=== PATIENT | female | born 1930 | race Caucasian/White ===

== ENCOUNTER 2018-01-20 03:40 | Inpatient (IN) | payer OTHER ==
[~2018-01-20] VITALS: Ht 152.4 cm; Wt 63.6 kg
[2018-01-20] MEDS ORDERED: FENTANYL CITRATE INJ 50 MCG/1 ML 2 ML VIAL IV STA (03:50)
[2018-01-20] MEDS ORDERED: ONDANSETRON INJ 2 MG/ML 2 ML VIAL IV STA (03:50)
[2018-01-20] MEDS ORDERED: SODIUM CHLORIDE 0.9% 1000ML 1,000 ML IV STA (03:50)
[2018-01-20 04:05] LABS: BASO % 0.4 %; BASO ABS # 0.04 K/uL (0-0.2); EOS % 0.5 %; EOS ABS # 0.05 K/uL (0-0.5); HEMATOCRIT 34.8 % (37-47); HEMOGLOBIN 11.7 g/dL (12.0-16.0); IG# 0.02 K/uL (0.00-0.02); LYMPH % 13.2 %; LYMPH ABS # 1.44 K/uL (1.2-3.4); MEAN CELL VOLUME 83.5 fL (80-100); MEAN CORPUSCULAR HEMOGLOBIN 28.1 pg (25-34); MEAN CORPUSCULAR HGB CONC 33.6 g/dl (32-36); MEAN PLATELET VOLUME 9.8 fL (7.4-10.4); MONO % 4.4 %; MONO ABS # 0.48 K/uL (0.11-0.59); NEUT % 81.3 %; NEUT ABS # 8.86 K/uL (1.4-6.5); PLATELET COUNT 265 K/uL (130-400); RED CELL DISTRIBUTION WIDTH CV 14.2 % (11.5-14.5); RED CELL DISTRIBUTION WIDTH SD 43.2 fL (36.4-46.3); WHITE BLOOD COUNT 10.89 K/uL (4.8-10.8)
--- NOTE | 2018-01-20 04:12 | EMERGENCY ROOM VISIT NOTE ---
History Report prepared by Valdez: Abby Brenner Under the Supervision of: Dr. Мария Lamb M.D. First contact with patient: 03:41 Chief Complaint: CARDIAC ASSESSMENT Stated Complaint: CHEST CRAMPING History of Present Illness The patient is a 88 year old female who presents to the Emergency Room with complaints of persistent right sided chest pain that began about 4 hours prior to arrival. She describes her discomfort as a cramping sensation. Pt took 650 mg of aspirin at home, she was given 324 mg of aspirin by BLS on scene. The patient vomited in the ambulance and was given 4 mg of IV Zofran. She denies any back pain or recent illnesses, but notes she has been experiencing abdominal pain and urinating every 5-10 minutes. She reports that her discomfort has not been relieved since it started. Patient states she had an egg sandwich for dinner last evening. She did feel well prior to going to bed. She denies any recent illnesses. The patient denies being a smoker or any recent long distance car rides. Source of History: patient Onset: about 4 hours prior to arrival Position: chest (right) Symptom Intensity: cramping Quality: other (right sided chest pain) Timing: other (persistent) Associated Symptoms: + vomiting, + abdominal pain, No back pain Note: Denies any recent illness. Associated symptoms include: ruinating every 5-10 minutes. Review of Systems See HPI for pertinent positives & negatives. A total of 10 systems reviewed and were otherwise negative. Past Medical & Surgical Medical Problems: (1) Abdominal pain Hypertension Hypothyroidism Family History Patient reports no known family medical history. No pertinent family history. Social History Smoking Status: Never Smoker Smokeless Tobacco Use: No Alcohol Use: none Drug Use: none Marital Status: Occupation Status: retired Current/Historical Medications Scheduled Amlodipine (Norvasc), 2.5 MG PO DAILY Fish Oil ([place]-3), 1 CAP PO DAILY Levothyroxine Sodium (Levothyroxine Sodium), 1 TAB PO DAILY Lisinopril (Lisinopril), 40 MG PO DAILY Allergies Coded Allergies: No Known Allergies (Unverified , 01/20/18) Physical Exam Vital Signs Date Time Temp Pulse Resp B/P (MAP) Pulse Ox O2 Delivery O2 Flow Rate FiO2 01/20/18 06:26 64 16 134/63 98 Room Air 01/20/18 04:55 68 16 125/65 97 Room Air 01/20/18 03:52 36.4 79 16 101/82 97 Room Air 01/20/18 03:52 77 01/20/18 03:47 98 Room Air Physical Exam Vital signs reviewed. General: Elderly. Well-appearing female, in some discomfort. HEENT: No scleral icterus, PERRLA, neck supple. Atraumatic. Cardiovascular: Regular rate and rhythm, no extra sounds. Pulmonary: Clear to auscultation bilaterally, normal work of breathing. Abdomen: Tenderness to right upper quadrant. Soft, nondistended, positive bowel sounds. Musculoskeletal: Atraumatic, no peripheral edema. No CVA tenderness. Neurologic: Patient awake alert and oriented x 3 Skin: Warm, dry, no rash Medical Decision & Procedures ER Provider Diagnostic Interpretation: Radiology results as stated below per my review and radiologist interpretation: Chest x-ray results as stated below per interpretation by me: Slight interstitial prominence precisely at the left lung base. No convincing evidence for pneumonia. No congestive heart failure. CT ABDOMEN & PELVIS without contrast: Lower thorax demonstrates atelectasis and or scarring. Enlarged heart. Gallstones. No CT evidence of acute cholecystitis. Liver, spleen, pancreas and adrenal glands are unremarkable. Kidneys, ureters and urinary bladder unremarkable. Uterus and adnexa unremarkable. Noninflamed colonic diverticulosis. Appendix is not visualized. Vascular calcifications. No acute osseous abnormality. Radiologist: Maxwell Evans MD. US RUQ: Increased echogenicity liver suggesting hepatic steatosis. Gallstones noted within the gallbladder neck. No gallbladder wall thickening or pericholecystic fluid. Common bile duct is prominent measuring 11mm. Right kidney is atrophic. No hydronephrosis or masses. Radiologist: Maxwell Bonilla MD. Laboratory Results 01/20/18 03:50 Red Blood Count 4.17, Mean Corpuscular Volume 83.5, Mean Corpuscular Hemoglobin 28.1, Mean Corpuscular Hemoglobin Concent 33.6, Mean Platelet Volume 9.8, Neutrophils (%) (Auto) 81.3, Lymphocytes (%) (Auto) 13.2, Monocytes (%) (Auto) 4.4, Eosinophils (%) (Auto) 0.5, Basophils (%) (Auto) 0.4, Neutrophils # (Auto) 8.86, Lymphocytes # (Auto) 1.44, Monocytes # (Auto) 0.48, Eosinophils # (Auto) 0.05, Basophils # (Auto) 0.04 01/20/18 03:50 Test 01/20/18 03:50 White Blood Count 10.89 K/uL (4.8-10.8) Red Blood Count 4.17 M/uL (4.2-5.4) Hemoglobin 11.7 g/dL (12.0-16.0) Hematocrit 34.8 % (37-47) Mean Corpuscular Volume 83.5 fL (80-100) Mean Corpuscular Hemoglobin 28.1 pg (25-34) Mean Corpuscular Hemoglobin Concent 33.6 g/dl (32-36) Platelet Count 265 K/uL (130-400) Mean Platelet Volume 9.8 fL (7.4-10.4) Neutrophils (%) (Auto) 81.3 % Lymphocytes (%) (Auto) 13.2 % Monocytes (%) (Auto) 4.4 % Eosinophils (%) (Auto) 0.5 % Basophils (%) (Auto) 0.4 % Neutrophils # (Auto) 8.86 K/uL (1.4-6.5) Lymphocytes # (Auto) 1.44 K/uL (1.2-3.4) Monocytes # (Auto) 0.48 K/uL (0.11-0.59) Eosinophils # (Auto) 0.05 K/uL (0-0.5) Basophils # (Auto) 0.04 K/uL (0-0.2) RDW Standard Deviation 43.2 fL (36.4-46.3) RDW Coefficient of Variation 14.2 % (11.5-14.5) Immature Granulocyte % (Auto) 0.2 % Immature Granulocyte # (Auto) 0.02 K/uL (0.00-0.02) Anion Gap 9.0 mmol/L (3-11) Est Creatinine Clear Calc Drug Dose 40.9 ml/min Estimated GFR () 70.9 Estimated GFR (Non- 61.2 BUN/Creatinine Ratio 11.0 (10-20) Estimated Average Glucose 117 mg/dl Hemoglobin A1c 5.7 % (4.5-5.6) Calcium Level 8.9 mg/dl (8.5-10.1) Magnesium Level 2.2 mg/dl (1.8-2.4) Total Bilirubin 0.5 mg/dl (0.2-1) Direct Bilirubin 0.1 mg/dl (0-0.2) Aspartate Amino Transf (AST/SGOT) 19 U/L (15-37) Alanine Aminotransferase (ALT/SGPT) 20 U/L (12-78) Alkaline Phosphatase 102 U/L (45-117) Total Creatine Kinase 95 U/L (26-192) Creatine Kinase MB 0.9 ng/ml (0.5-3.6) Creatine Kinase MB Ratio 0.9 (0-3.0) Troponin I < 0.015 ng/ml (0-0.045) Total Protein 8.1 gm/dl (6.4-8.2) Albumin 3.7 gm/dl (3.4-5.0) Lipase 162 U/L (73-393) Laboratory results per my review. Medications Administered Medications (Trade) Dose Ordered Sig/Tano Route Start Time Stop Time Status Last Admin Dose Admin Sodium Chloride 1,000 ml @ 125 mls/hr Q8H STAT IV 01/20/18 03:50 01/20/18 07:57 DC 01/20/18 03:59 125 MLS/HR Fentanyl Citrate (Fentanyl Inj) 25 mcg NOW STAT IV 01/20/18 03:50 01/20/18 03:52 DC 01/20/18 04:00 25 MCG Ondansetron HCl (Zofran Inj) 4 mg NOW STAT IV 01/20/18 03:50 01/20/18 03:52 DC 01/20/18 03:59 4 MG Promethazine HCl 6.25 mg/Sodium Chloride 50.25 ml @ 204 mls/hr NOW STAT IV 01/20/18 04:56 01/20/18 05:10 DC 01/20/18 05:06 204 MLS/HR Cefoxitin Sodium (Mefoxin 2000mg/ 60 ml D5W) 2,000 mg NOW STAT IV 01/20/18 05:58 01/20/18 05:59 DC 01/20/18 06:25 2,000 MG Fentanyl Citrate (Fentanyl Inj) 25 mcg NOW ONCE IV 01/20/18 06:15 01/20/18 06:16 DC 01/20/18 06:25 25 MCG Metoclopramide HCl (Reglan Inj) 10 mg NOW STAT IV 01/20/18 06:17 01/20/18 06:18 DC 01/20/18 06:24 10 MG ECG Per My Interpretation Indication: chest pain Rate (beats per minute): 77 Rhythm: normal sinus Findings: no acute ischemic change, no ectopy, other (Left anterior fascicular block, previous inferior septal infarct, non specific ST changes) Comparison ECG Date: no prior available ED Course 0345: Past medical records reviewed. The patient was evaluated in room A10. A complete history and physical examination was performed. 0350: Ordered Zofran Inj 4mg IV, Fentanyl Inj 25mg IV, and Sodium Chloride 1000ml @ 125mls/hr IV. 0456: Ordered Promethazine 6.25mg IV. 0558: Ordered Cefoxitin Sodium 2000mg IV. 0615: Fentanyl Citrate 25mcg IV. 0617: Ordered Reglan Inj 10mg IV. 0631: Reviewed the patient's case with Dr. Olsen. He will evaluate the patient for further management. 0648: Reviewed the patient's case with SONYA Wahl. He will evaluate the patient for further management. 0715: Reevaluated by Yeison Yang PA-C on my behalf due to another critical case in the department. The patient and discussed test findings. She verbalized agreement of the treatment plan. Medical Decision Differential diagnosis: Etiologies such as acute coronary syndrome, renal colic, appendicitis, diverticulitis, mesenteric ischemia, aortic pathology, infections, inflammatory bowel disease, PUD, biliary pathology, UTI, as well as others were entertained. This patient was evaluated and appeared to be in significant discomfort. IV access was obtained and laboratory work was drawn. The patient was placed on air sampling and monitoring and found to be in a normal sinus rhythm. EKG reveals no evidence of acute ischemic change. Laboratory work reveals a mild leukocytosis. CT scan of the abdomen and pelvis is concerning for a choledocholithiasis. US was performed as above. Patient's liver function studies are within normal limits. IV Mefoxin 2 g was ordered. Patient was given additional pain medication and nausea medication. Due to the need for my attention with another critical case, Yeison Yang PA-C reevaluated the patient and updated her to the findings. Gastroenterology, Dr. Day as well as Dr. Ojeda of the hospitalist service were contacted for admission and further management. Medication Reconcilliation Current Medication List: was personally reviewed by me Blood Pressure Screening Patient's blood pressure: Normal blood pressure Blood pressure disposition: Did not require urgent referral Consults Time Called: 06 Consulting Physician: Yolanda Byrd Returned Call: 06 Reviewed the patient's case with Yolanda Byrd. He will evaluate the patient for further management. Additional Consults: Time Called: 06 Consulted Physician: SONYA Wahl Returned Call: 06 Additional Comments: Reviewed the patient's case with SONYA Wahl. He will evaluate the patient for further management. Impression Primary Impression: Choledocholithiasis Scribe Attestation The scribe's documentation has been prepared under my direction and personally reviewed by me in its entirety. I confirm that the note above accurately reflects all work, treatment, procedures, and medical decision making performed by me. Departure Information Dispostion Being Evaluated By Hospitalist Referrals No Doctor, Assigned (PCP) Patient Instructions My [facility]
[2018-01-20] MEDS ORDERED: LEVO50TA6 PO (04:13)
[2018-01-20] MEDS ORDERED: OMEG10007 PO (04:13)
[2018-01-20] MEDS ORDERED: LSN40 PO (04:13)
[2018-01-20] MEDS ORDERED: AMLO2.5T PO (04:13)
[2018-01-20 04:27] LABS: ALBUMIN 3.7 gm/dl (3.4-5.0); ALT/SGPT 20 U/L (12-78); AST/SGOT 19 U/L (15-37); BLOOD UREA NITROGEN 9 mg/dl (7-18); CALCIUM 8.9 mg/dl (8.5-10.1); CARBON DIOXIDE 26 mmol/L (21-32); CREATININE 0.86 mg/dl (0.60-1.20); GLUCOSE 163 mg/dl (70-99); LIPASE 162 U/L (73-393); POTASSIUM 3.3 mmol/L (3.5-5.1); SODIUM 136 mmol/L (136-145)
[2018-01-20 04:32] LABS: ALKALINE PHOSPHATASE 102 U/L (45-117); CKMB 0.9 ng/ml (0.5-3.6); TOTAL PROTEIN 8.1 gm/dl (6.4-8.2)
[2018-01-20] MEDS ORDERED: PROMETHAZINE HCL INJ 6.25 MG in SODIUM CHLORIDE 0.9% 50ML 50 ML IV STA (04:56)
[2018-01-20] MEDS ORDERED: CEFOXITIN 2000MG/60 ML D5W IV STA (05:58)
[2018-01-20] MEDS ORDERED: POTASSIUM CHLORIDE 10 MEQ TABCR PO STA (06:15)
[2018-01-20] MEDS ORDERED: FENTANYL CITRATE INJ 50 MCG/1 ML 2 ML VIAL IV ONE (06:15)
[2018-01-20] MEDS ORDERED: METOCLOPRAMIDE HCL INJ 5 MG/ML 2 ML VIAL IV STA (06:17)
[2018-01-20] MEDS ORDERED: TRAMADOL HCL 50 MG TAB PO PRN (06:45)
[2018-01-20] MEDS ORDERED: PROCHLORPERAZINE INJ 5 MG in SYRINGE 4 ML IV PRN (06:45)
[2018-01-20] MEDS ORDERED: ACETAMINOPHEN 325 MG TAB PO PRN (06:45)
--- NOTE | 2018-01-20 06:46 | DIAGNOSTIC IMAGING REPORT ---
GALLBLADDER-ABD LIMITED HISTORY: 88 years-old Female RUQ pain acute right upper quadrant abdominal pain COMPARISON: CT abdomen and pelvis 01/20/2018 TECHNIQUE: Multiple real-time sonographic images of the abdominal right upper quadrant were obtained assessing grayscale appearance and color flow FINDINGS: The imaged pancreas appears atrophic and unremarkable. Pancreatic duct measures 2 mm. Slightly increased echogenicity of the liver is noted which is nonspecific without focal mass or intrahepatic biliary ductal dilation identified. Shadowing gallstones are noted within the gallbladder neck along with sludge. No wall thickening or pericholecystic fluid collections. No right upper quadrant tenderness was reported. The common bile duct is mildly dilated, 1.1 cm with previously suggested choledocholithiasis is not appreciated by sonography. The imaged right kidney appears mildly atrophic without hydronephrosis. IMPRESSION: 1. Cholelithiasis and gallbladder sludge without sonographic evidence of acute cholecystitis. 2. Mildly dilated common bile duct, 1.1 cm with previously noted material within the common bile duct seen by CT not identified. 3. No intrahepatic biliary ductal dilation. The above report was generated using voice recognition software. It may contain grammatical, syntax or spelling errors. Electronically signed by: Daljit Torres M.D. 01/20/2018 6:45 AM Dictated Date/Time: 01/20/2018 6:41 AM
--- NOTE | 2018-01-20 06:51 | DIAGNOSTIC IMAGING REPORT ---
ABD/PELVIS NO IV OR ORAL CONT CT DOSE: 353.84 mGy.cm HISTORY: Pain Right flank pain, kidney stone TECHNIQUE: Multiaxial CT images of the abdomen and pelvis were performed without contrast. A dose lowering technique was utilized adhering to the principles of ALARA. COMPARISON STUDY: None FINDINGS: Lung bases remain clear. Minimal basilar atelectatic change. Gallstones though the gallbladder neck. Apparent choledocholithiasis with debris and/or small gravel within the distal common bile duct. Moderate atrophy of the pancreas. Kidneys are considered negative for calcification or hydronephrosis. The bowel pattern is nonobstructive. Chronic sigmoid diverticulosis. No evidence for acute diverticulitis. Bladder is midline with no contained calcifications. The appendix appears normal. IMPRESSION: 1. Chronic sigmoid diverticulosis. 2. No evidence for acute diverticulitis. 3. Gallstones within the gallbladder neck with a component of choledocholithiasis. The above report was generated using voice recognition software. It may contain grammatical, syntax or spelling errors. Electronically signed by: Phu Mabry M.D. 01/20/2018 6:49 AM Dictated Date/Time: 01/20/2018 6:46 AM
[2018-01-20] MEDS: HYDROmorphone INJ 0.5 MG/0.5 ML SYR IV PRN ×2 (07:01→13:05)
--- NOTE | 2018-01-20 07:13 | HISTORY & PHYSICAL EXAMINATION ---
DATE OF ADMISSION: 01/20/2018 PRIMARY CARE DOCTOR: Dr. Alicia. CHIEF COMPLAINT: Abdominal pain. HISTORY OF PRESENT ILLNESS: History obtained from the patient, daughter, and records. Medical history significant for hypertension, hypothyroidism, chronic anemia (baseline hemoglobin of 11). Few hours history of achy right-sided abdominal pain with nausea, emesis. No previous episodes in the past. Admits to eating some junk food last night. No fever, no chills. No chest pain, no shortness of breath. Patient admits to some leg cramps. Patient brought to the Emergency Room. Gallbladder ultrasound initial read showed high density material of distal CBD suggesting choledocholithiasis, common bile duct measuring [address] abdomen and pelvis contrast initial read, gallstones, enlarged heart. Patient given Cefoxitin for possible biliary infection at the ER MEDICAL HISTORY: As above. SURGERIES: Appendectomy, cataract surgery. HOME MEDICATIONS: Include Norvasc, lisinopril. ALLERGIES: No known drug allergies. FAMILY HISTORY: There is a family history of diabetes, heart disease. PERSONAL SOCIAL HISTORY: Nonsmoker, no chronic intake of alcoholic beverages. Retired from office work. REVIEW OF SYSTEMS: As per HPI, all 10 systems reviewed, all other ROS negative. PHYSICAL EXAMINATION: VITAL SIGNS: Blood pressure was noted to be 101/82, pulse 87, RR 16 T 37 sats 97 on room air. GENERAL: Noted to be uncomfortable, obese, no distress. SKIN: Normal. SKIN: Pallor, warm. HEENT: Pale palpebral conjunctivae. No ptosis. Dry mucosa. NECK: Supple, nontender. CHEST: Clear to auscultation. No tenderness. HEART: RRR, no murmur. ABDOMEN: Right upper quadrant tenderness, some distention. EXTREMITIES: No edema noted. No gross deformity, minimal LE tenderness. NEUROLOGIC: Coherent, no gross focality. LABORATORY DATA: Hemoglobin 11.7, hematocrit 34.8, white cells 10 platelets 265. Sodium 136, potassium 3.3, BUN 19, creatinine 0.8, glucose 163, LFTS, lipase normal. CT abd pelvis, gallbladder ultrasound initial results as per HPI. ASSESSMENT: 1. Abdominal pain possible biliary colic. No sepsis. 2. Hypertension, stable. 3. Hypokalemia secondary to emesis. 4. Chronic anemia, hemoglobin at baseline. 5. Leg cramping secondary to hypokalemia ro DVT 6. Hyperglycemia ro DM PLAN: OBS GMF analgesia, antiemetics. Hold off on antibiotics for now. Replace potassium. GI consult. RE Abdominal pain. (ER provider already in touch with Dr. Day.) Lower extremity Dopplers to rule out DVT Check hemoglobin A1c DVT prophylaxis Lovenox subQ. DNR. Patient's daughter requesting for updates from providers. Ms. Jaja Zambrano at [phone]. MTDD
[2018-01-20] MEDS ORDERED: NSS + 20MEQ KCL 1000ML 1,000 ML IV ONE (08:00)
[2018-01-20 08:33] LABS: HEMOGLOBIN A1C 5.7 % (4.5-5.6)
[2018-01-20] MEDS: LISINOPRIL 40 MG TAB PO SCH (08:33)
[2018-01-20] MEDS: LEVOTHYROXINE 50 MCG TAB PO SCH (08:33)
[2018-01-20] MEDS: ENOXAPARIN 40 MG/0.4 ML SYR SQ SCH (08:33)
[2018-01-20] MEDS: AMLODIPINE BESYLATE 5 MG TAB PO SCH (08:38)
[2018-01-20 08:39] VITALS: BP 155/66; PULSE 69; TEMP 36.6; O2SAT 92; Ht 152.4 cm; Wt 63.6 kg
[2018-01-20] MEDS ORDERED: IV FLUIDS COMPLETED PRN (09:00)
--- NOTE | 2018-01-20 10:54 | DIAGNOSTIC IMAGING REPORT ---
VENOUS DOPPLER LWR EXT BILA HISTORY: Pain. Edema. leg cramps COMPARISON STUDY: None. FINDINGS: There is normal compressibility, flow, and augmentation within the bilateral lower extremity deep venous systems. IMPRESSION: No DVT within the right or left lower extremity. The above report was generated using voice recognition software. It may contain grammatical, syntax or spelling errors. Electronically signed by: Phu Mabry M.D. 01/20/2018 10:53 AM Dictated Date/Time: 01/20/2018 10:53 AM
--- NOTE | 2018-01-20 13:23 | Gastrointestinal Consultation ---
Gastrointestinal Consultation Date of Consultation: Jan 20, 2018 Attending Physician: Dr. Antoine Consulting Physician: Dr. Lillie Day Reason for Consultation: Abdominal pain, abnormal Ultrasound History of Present Illness Patient is a 88 year old female patient of Dr. Alicia with a hx of of HTN, hypothyroidism, chronic anemia who presented to the ED yesterday for abdominal pain. GI is consulted for this pain and for abnormal US which suggests distal choledocholithiasis. The patient is awake, alert, oriented. She tells me that her son lives with her , in her home but she is independent. She had eaten a fried egg sandwich and some junk food for supper last night. She was awakened at 1AM with a RUQ ache that quickly increased. She had some fast heart beats and mild chest heaviness with this pain but thinks this might have been because the pain made her anxious. She had nausea and experienced vomiting in the ambulance. She has not had fever, jaundice, acholic stools or dark urine. On arrival, LFTs and lipase were normal. On arrival, RUQ ultrasound suggested choledocholithiasis with CBD 1cm. There was also borderline leukocytosis and a shift left. She tells me that the pain is better but still present. She also says that she does not want to undergo surgery. Past Medical/Surgical History Medical Problems: (1) Choledocholithiasis Status: Acute (2) Hypertension Status: Chronic (3) Hypothyroidism Status: Chronic Past Medical History: 1. HTN 2. Hypothyroidism 3. Chronic anemia Past Surgical History: 1. Cataract surgery 2. Appendectomy Family History Patient reports no known family medical history. Social History Smoking Status: Never Smoker Alcohol Use: none Drug Use: none Marital Status: Occupation Status: retired Allergies Coded Allergies: No Known Allergies (Unverified , 01/20/18) Current Medications Home Meds and Scripts Medications Dose Route/Sig Max Daily Dose Days Date Category [place]-3 (Fish Oil) 1 Ea Cap 1 Cap PO DAILY 01/20/18 Reported Lisinopril 40 Mg Tab 40 Mg PO DAILY 01/20/18 Reported Levothyroxine Sodium 50 Mcg Tab 1 Tab PO DAILY 01/20/18 Reported Norvasc (Amlodipine Besylate) 2.5 Mg Tab 2.5 Mg PO DAILY 01/20/18 Reported Review of Systems Constitutional: No fever, No chills, No sweats, No weight loss, No weakness Eyes: No eye pain, No redness ENT: No sore throat, No trouble swallowing, No pain on swallowing Respiratory: No cough, No wheezing, No shortness of breath, No dyspnea on exertion Cardiac: No chest pain, No edema, No palpitations Abdomen: + see HPI, + pain, + nausea, + vomiting, No diarrhea, No constipation , No GI bleeding, No dysphagia, No odynophagia Neuro: No memory loss, No weakness, No numbness/tingling, No vertigo, No balance problems Psych: No depression symptoms, No anxiety, No insomnia Heme: No abnormal bleeding/bruising, No night sweats Endo: No excessive thirst, No excessive urination Skin: No rash, No itch, No new/changing skin lesions, No jaundice Physical Exam Date Time Temp Pulse Resp B/P (MAP) Pulse Ox O2 Delivery O2 Flow Rate FiO2 01/20/18 08:39 36.6 69 16 155/66 92 Room Air 01/20/18 06:57 71 16 150/65 98 Room Air 01/20/18 06:26 64 16 134/63 98 Room Air 01/20/18 04:55 68 16 125/65 97 Room Air 01/20/18 03:52 36.4 79 16 101/82 97 Room Air 01/20/18 03:52 77 01/20/18 03:47 98 Room Air General Appearance: no apparent distress Eyes: normal inspection, EOMI Neck: supple, no adenopathy, thyroid normal, no JVD Respiratory/Chest: chest non-tender, lungs clear, normal breath sounds, no accessory muscle use Cardiovascular: regular rate, rhythm, no JVD, no murmur Abdomen: normal bowel sounds, soft, no organomegaly, + tenderness (moderate RUQ tenderness) Extremities: normal inspection, no pedal edema, normal capillary refill Neurologic/Psych: alert, normal mood/affect, oriented x 3 Skin: normal color, no jaundice, warm/dry, no rash Laboratory Results Last 24 Hours Test 01/20/18 03:50 White Blood Count 10.89 K/uL Red Blood Count 4.17 M/uL Hemoglobin 11.7 g/dL Hematocrit 34.8 % Mean Corpuscular Volume 83.5 fL Mean Corpuscular Hemoglobin 28.1 pg Mean Corpuscular Hemoglobin Concent 33.6 g/dl Platelet Count 265 K/uL Mean Platelet Volume 9.8 fL Neutrophils (%) (Auto) 81.3 % Lymphocytes (%) (Auto) 13.2 % Monocytes (%) (Auto) 4.4 % Eosinophils (%) (Auto) 0.5 % Basophils (%) (Auto) 0.4 % Neutrophils # (Auto) 8.86 K/uL Lymphocytes # (Auto) 1.44 K/uL Monocytes # (Auto) 0.48 K/uL Eosinophils # (Auto) 0.05 K/uL Basophils # (Auto) 0.04 K/uL RDW Standard Deviation 43.2 fL RDW Coefficient of Variation 14.2 % Immature Granulocyte % (Auto) 0.2 % Immature Granulocyte # (Auto) 0.02 K/uL Sodium Level 136 mmol/L Potassium Level 3.3 mmol/L Chloride Level 101 mmol/L Carbon Dioxide Level 26 mmol/L Anion Gap 9.0 mmol/L Blood Urea Nitrogen 9 mg/dl Creatinine 0.86 mg/dl Est Creatinine Clear Calc Drug Dose 40.9 ml/min Estimated GFR () 70.9 Estimated GFR (Non- 61.2 BUN/Creatinine Ratio 11.0 Random Glucose 163 mg/dl Estimated Average Glucose 117 mg/dl Hemoglobin A1c 5.7 % Calcium Level 8.9 mg/dl Magnesium Level 2.2 mg/dl Total Bilirubin 0.5 mg/dl Direct Bilirubin 0.1 mg/dl Aspartate Amino Transf (AST/SGOT) 19 U/L Alanine Aminotransferase (ALT/SGPT) 20 U/L Alkaline Phosphatase 102 U/L Total Creatine Kinase 95 U/L Creatine Kinase MB 0.9 ng/ml Creatine Kinase MB Ratio 0.9 Troponin I < 0.015 ng/ml Total Protein 8.1 gm/dl Albumin 3.7 gm/dl Lipase 162 U/L Gallbladder US on 02/20/18: IMPRESSION: 1. Cholelithiasis and gallbladder sludge without sonographic evidence of acute cholecystitis. 2. Mildly dilated common bile duct, 1.1 cm with previously noted material within the common bile duct seen by CT not identified. 3. No intrahepatic biliary ductal dilation. Non contrast CT abd/pelvis: 1. Chronic sigmoid diverticulosis. 2. No evidence for acute diverticulitis. 3. Gallstones within the gallbladder neck with a component of choledocholithiasis. (sludge in the distal CBD). Impression Patient is a 88 year old female with abdominal pain, imaging suggestive of gallstones and choledocholithiasis. Plan 1. Clear liquids po today. 2. Plan for ERCP tomorrow by Dr. Day. Procedure explained in detail. 3. Consider surgical referral for cholecystectomy. 4. Check LFTs and lipase tomorrow. I saw and evaluated the patient with Zain Guy. She presented with abdominal pain and was found to have evidence of choledocholitiasis. PE NAD No scleral icterus Impression: choledocholithiasis seen on CT, will proceed with ERCP on . would suggest a general surgery consultation to discussed cholecystectomy. We have discussed the risks to include bleeding, infection, perforation, pain, pancreatitis, and failed cannulation.
[2018-01-20 15:30] VITALS: BP 136/65; PULSE 91; TEMP 37.1; O2SAT 93
[2018-01-20 16:50] VITALS: TEMP 37.6
--- NOTE | 2018-01-20 18:09 | Progress Note ---
Subjective Date of Service: Jan 20, 2018. Subjective Pt evaluation today including: conversation w/ patient, physical exam, lab review, review of studies, review of inpatient medication list Saw/examined the patient in room 375 No problems/issues at this point, abdominal pain improving Denies fevers/chills Problem List Medical Problems: (1) Choledocholithiasis Status: Acute (2) Hypertension Status: Chronic (3) Hypothyroidism Status: Chronic Review of Systems Constitutional: No fever, No chills Respiratory: No shortness of breath Cardiac: No chest pain Abdomen: + see HPI, + pain, No nausea, No vomiting, No diarrhea Medications Current Inpatient Medications Medications (Trade) Dose Ordered Sig/Tano Route Start Time Stop Time Status Last Admin Dose Admin Enoxaparin Sodium (Lovenox Inj) 40 mg Q24H SQ 01/20/18 09:00 02/19/18 08:59 01/20/18 08:33 40 MG Acetaminophen (Tylenol Tab) 650 mg Q4H PRN PO 01/20/18 06:45 02/19/18 06:44 Amlodipine Besylate (Norvasc Tab) 2.5 mg DAILY PO 01/20/18 09:00 02/19/18 08:59 01/20/18 08:38 2.5 MG Levothyroxine Sodium (Synthroid Tab) 50 mcg DAILYBB PO 01/20/18 09:00 02/19/18 08:59 01/20/18 08:33 50 MCG Lisinopril (Zestril Tab) 40 mg DAILY PO 01/20/18 09:00 02/19/18 08:59 01/20/18 08:33 40 MG Potassium Chloride/Sodium Chloride 1,000 ml @ 60 mls/hr [id number] ONCE IV 01/20/18 08:00 01/21/18 00:39 01/20/18 08:38 60 MLS/HR Prochlorperazine Edisylate 5 mg/ Syringe 5 ml @ 5 mls/min Q6H PRN IV 01/20/18 06:45 02/19/18 06:44 Tramadol HCl (Ultram Tab) not relieved by tylenol @ Q6H PRN PO 01/20/18 06:45 02/19/18 06:44 01/20/18 09:00 50 MG Hydromorphone HCl (Dilaudid Inj) 0.5 mg Q3H PRN IV 01/20/18 06:45 02/03/18 06:44 01/20/18 13:05 0.5 MG Miscellaneous (Iv Fluids Completed) 1 ea PRN PRN N/A 01/20/18 09:00 01/20/19 08:59 Objective Vital Signs Date Time Temp Pulse Resp B/P (MAP) Pulse Ox O2 Delivery O2 Flow Rate FiO2 01/20/18 16:50 37.6 01/20/18 15:30 37.1 91 16 136/65 (88) 93 Room Air 01/20/18 08:39 36.6 69 16 155/66 92 Room Air 01/20/18 06:57 71 16 150/65 98 Room Air 01/20/18 06:26 64 16 134/63 98 Room Air 01/20/18 04:55 68 16 125/65 97 Room Air 01/20/18 03:52 36.4 79 16 101/82 97 Room Air 01/20/18 03:52 77 01/20/18 03:47 98 Room Air Physical Exam General Appearance: no apparent distress Respiratory/Chest: lungs clear, normal breath sounds, no respiratory distress, no accessory muscle use Cardiovascular: regular rate, rhythm, no edema, no murmur Abdomen: normal bowel sounds, non tender, soft, no organomegaly, no pulsatile mass Extremities: normal inspection, no pedal edema Neurologic/Psychiatric: no motor/sensory deficits, alert, normal mood/affect Laboratory Results Last 24 Hours Test 01/20/18 03:50 01/20/18 16:50 White Blood Count 10.89 K/uL Red Blood Count 4.17 M/uL Hemoglobin 11.7 g/dL Hematocrit 34.8 % Mean Corpuscular Volume 83.5 fL Mean Corpuscular Hemoglobin 28.1 pg Mean Corpuscular Hemoglobin Concent 33.6 g/dl Platelet Count 265 K/uL Mean Platelet Volume 9.8 fL Neutrophils (%) (Auto) 81.3 % Lymphocytes (%) (Auto) 13.2 % Monocytes (%) (Auto) 4.4 % Eosinophils (%) (Auto) 0.5 % Basophils (%) (Auto) 0.4 % Neutrophils # (Auto) 8.86 K/uL Lymphocytes # (Auto) 1.44 K/uL Monocytes # (Auto) 0.48 K/uL Eosinophils # (Auto) 0.05 K/uL Basophils # (Auto) 0.04 K/uL RDW Standard Deviation 43.2 fL RDW Coefficient of Variation 14.2 % Immature Granulocyte % (Auto) 0.2 % Immature Granulocyte # (Auto) 0.02 K/uL Sodium Level 136 mmol/L Potassium Level 3.3 mmol/L Chloride Level 101 mmol/L Carbon Dioxide Level 26 mmol/L Anion Gap 9.0 mmol/L Blood Urea Nitrogen 9 mg/dl Creatinine 0.86 mg/dl Est Creatinine Clear Calc Drug Dose 40.9 ml/min Estimated GFR () 70.9 Estimated GFR (Non- 61.2 BUN/Creatinine Ratio 11.0 Random Glucose 163 mg/dl Estimated Average Glucose 117 mg/dl Hemoglobin A1c 5.7 % Calcium Level 8.9 mg/dl Magnesium Level 2.2 mg/dl Total Bilirubin 0.5 mg/dl Direct Bilirubin 0.1 mg/dl Aspartate Amino Transf (AST/SGOT) 19 U/L Alanine Aminotransferase (ALT/SGPT) 20 U/L Alkaline Phosphatase 102 U/L Total Creatine Kinase 95 U/L Creatine Kinase MB 0.9 ng/ml Creatine Kinase MB Ratio 0.9 Troponin I < 0.015 ng/ml Total Protein 8.1 gm/dl Albumin 3.7 gm/dl Lipase 162 U/L Urine Color YELLOW Urine Appearance CLEAR Urine pH 5.5 Urine Specific [place] 1.018 Urine Protein NEG Urine Glucose (UA) NEG Urine Ketones NEG Urine Occult Blood 2+ Urine Nitrite NEG Urine Bilirubin NEG Urine Urobilinogen NEG Urine Leukocyte Esterase NEG Urine WBC (Auto) 1-5 /hpf Urine RBC (Auto) 5-10 /hpf Urine Hyaline Casts (Auto) 5-10 /lpf Urine Epithelial Cells (Auto) >30 /lpf Urine Bacteria (Auto) NEG Assessment and Plan This is an 88 year old female with a PMH of HTN, hypothyroidism - presents with acute RUQ abdominal pain Choledocholithiasis * appreciate GI input * plan for now is for ERCP in AM * general surgery has also been consulted * clear liquid diet for now; NPO after midnight HTN * BP stable; continue home medis Hypothyroidism * Synthroid DVT ppx * Lovenox DNR
--- NOTE | 2018-01-20 18:15 | Progress Note ---
Progress Note Date of Service Jan 20, 2018. Progress Note Patient is an 88 year old F scheduled for ERCP for choledocolithiasis with Dr Day tomorrow. She is in excellent cardiopulmonary health for her age, medical history of HTN and hypothyroidism with good exercise capacity. Labs and studies reviewed. Airway exam is reassuring. Anticipate general anesthesia as scheduled. Risks and benefits of the proposed anesthetic were discussed. Informed consent was obtained.
[2018-01-20 19:21] VITALS: O2SAT 94
[2018-01-20 22:44] VITALS: BP 106/56; PULSE 92; TEMP 37.2; O2SAT 91
--- NOTE | 2018-01-20 22:59 | Surgery Consultation ---
Consultation Date of Consultation: Jan 20, 2018. Attending Physician: Miya Antoine DO Reason for Consultation: RUQ pain, cholelithiasis History of Present Illness I have been asked by Dr. Antoine to see this 88-year-old female who was admitted with a history of right upper quadrant pain. Patient states that approximately midnight to 1:00 last night she awoke with pain that was a pressure-like dull ache extending from the midline across the right upper quadrant towards her back. There was no real sharp component to it. She had nausea but did not vomit. She has never had pain like that before. It was unrelenting. She had no change in her bowel or bladder habits. She has never had jaundice hepatitis or pancreatitis. Her only previous abdominal surgery was an appendectomy. She denies dysuria and hematuria Past Medical/Surgical History Medical Problems: (1) Choledocholithiasis Status: Acute (2) Hypertension Status: Chronic (3) Hypothyroidism Status: Chronic Family History Patient reports no known family medical history. Social History Smoking Status: Never Smoker Smokeless Tobacco Use: No Drug Use: none Marital Status: Occupation Status: retired Allergies Coded Allergies: No Known Allergies (Unverified , 01/20/18) Home Medications Scheduled Amlodipine (Norvasc), 2.5 MG PO DAILY Fish Oil ([place]-3), 1 CAP PO DAILY Levothyroxine Sodium (Levothyroxine Sodium), 1 TAB PO DAILY Lisinopril (Lisinopril), 40 MG PO DAILY Current Inpatient Medications Current Inpatient Medications Medications (Trade) Dose Ordered Sig/Tano Route Start Time Stop Time Status Last Admin Dose Admin Enoxaparin Sodium (Lovenox Inj) 40 mg Q24H SQ 01/20/18 09:00 02/19/18 08:59 01/20/18 08:33 40 MG Acetaminophen (Tylenol Tab) 650 mg Q4H PRN PO 01/20/18 06:45 02/19/18 06:44 01/20/18 19:07 650 MG Amlodipine Besylate (Norvasc Tab) 2.5 mg DAILY PO 01/20/18 09:00 02/19/18 08:59 01/20/18 08:38 2.5 MG Levothyroxine Sodium (Synthroid Tab) 50 mcg DAILYBB PO 01/20/18 09:00 02/19/18 08:59 01/20/18 08:33 50 MCG Lisinopril (Zestril Tab) 40 mg DAILY PO 01/20/18 09:00 02/19/18 08:59 01/20/18 08:33 40 MG Potassium Chloride/Sodium Chloride 1,000 ml @ 60 mls/hr [id number] ONCE IV 01/20/18 08:00 01/21/18 00:39 01/20/18 08:38 60 MLS/HR Prochlorperazine Edisylate 5 mg/ Syringe 5 ml @ 5 mls/min Q6H PRN IV 01/20/18 06:45 02/19/18 06:44 Tramadol HCl (Ultram Tab) not relieved by tylenol @ Q6H PRN PO 01/20/18 06:45 02/19/18 06:44 01/20/18 09:00 50 MG Hydromorphone HCl (Dilaudid Inj) 0.5 mg Q3H PRN IV 01/20/18 06:45 02/03/18 06:44 01/20/18 13:05 0.5 MG Miscellaneous (Iv Fluids Completed) 1 ea PRN PRN N/A 01/20/18 09:00 01/20/19 08:59 Review of Systems Constitutional: No fever, No chills Respiratory: No cough, No sputum Cardiovascular: No chest pain, No orthopnea Abdomen: + problem reported (as per HPI) Genitourinary - Female: + problem reported (as pewr HPI) Integumentary: No rash Allergic / Immunologic: No environmental allergies Physical Exam Date Time Temp Pulse Resp B/P (MAP) Pulse Ox O2 Delivery O2 Flow Rate FiO2 01/20/18 19:21 94 Room Air 01/20/18 16:50 37.6 01/20/18 15:30 37.1 91 16 136/65 (88) 93 Room Air 01/20/18 08:39 36.6 69 16 155/66 92 Room Air 01/20/18 06:57 71 16 150/65 98 Room Air 01/20/18 06:26 64 16 134/63 98 Room Air 01/20/18 04:55 68 16 125/65 97 Room Air 01/20/18 03:52 36.4 79 16 101/82 97 Room Air 01/20/18 03:52 77 01/20/18 03:47 98 Room Air General Appearance: WD/WN Head: normocephalic Eyes: normal inspection Neck: supple, no adenopathy Respiratory/Chest: chest non-tender, lungs clear Cardiovascular: regular rate, rhythm Abdomen/GI: normal bowel sounds, + tenderness (Minimal tenderness in the right upper quadrant to deep palpation) Back: normal inspection Extremities/Musculoskelatal: normal inspection Skin: normal color Laboratory Results Last 24 Hours Test 01/20/18 03:50 01/20/18 16:50 White Blood Count 10.89 K/uL Red Blood Count 4.17 M/uL Hemoglobin 11.7 g/dL Hematocrit 34.8 % Mean Corpuscular Volume 83.5 fL Mean Corpuscular Hemoglobin 28.1 pg Mean Corpuscular Hemoglobin Concent 33.6 g/dl Platelet Count 265 K/uL Mean Platelet Volume 9.8 fL Neutrophils (%) (Auto) 81.3 % Lymphocytes (%) (Auto) 13.2 % Monocytes (%) (Auto) 4.4 % Eosinophils (%) (Auto) 0.5 % Basophils (%) (Auto) 0.4 % Neutrophils # (Auto) 8.86 K/uL Lymphocytes # (Auto) 1.44 K/uL Monocytes # (Auto) 0.48 K/uL Eosinophils # (Auto) 0.05 K/uL Basophils # (Auto) 0.04 K/uL RDW Standard Deviation 43.2 fL RDW Coefficient of Variation 14.2 % Immature Granulocyte % (Auto) 0.2 % Immature Granulocyte # (Auto) 0.02 K/uL Sodium Level 136 mmol/L Potassium Level 3.3 mmol/L Chloride Level 101 mmol/L Carbon Dioxide Level 26 mmol/L Anion Gap 9.0 mmol/L Blood Urea Nitrogen 9 mg/dl Creatinine 0.86 mg/dl Est Creatinine Clear Calc Drug Dose 40.9 ml/min Estimated GFR () 70.9 Estimated GFR (Non- 61.2 BUN/Creatinine Ratio 11.0 Random Glucose 163 mg/dl Estimated Average Glucose 117 mg/dl Hemoglobin A1c 5.7 % Calcium Level 8.9 mg/dl Magnesium Level 2.2 mg/dl Total Bilirubin 0.5 mg/dl Direct Bilirubin 0.1 mg/dl Aspartate Amino Transf (AST/SGOT) 19 U/L Alanine Aminotransferase (ALT/SGPT) 20 U/L Alkaline Phosphatase 102 U/L Total Creatine Kinase 95 U/L Creatine Kinase MB 0.9 ng/ml Creatine Kinase MB Ratio 0.9 Troponin I < 0.015 ng/ml Total Protein 8.1 gm/dl Albumin 3.7 gm/dl Lipase 162 U/L Urine Color YELLOW Urine Appearance CLEAR Urine pH 5.5 Urine Specific [place] 1.018 Urine Protein NEG Urine Glucose (UA) NEG Urine Ketones NEG Urine Occult Blood 2+ Urine Nitrite NEG Urine Bilirubin NEG Urine Urobilinogen NEG Urine Leukocyte Esterase NEG Urine WBC (Auto) 1-5 /hpf Urine RBC (Auto) 5-10 /hpf Urine Hyaline Casts (Auto) 5-10 /lpf Urine Epithelial Cells (Auto) >30 /lpf Urine Bacteria (Auto) NEG ABD/PELVIS NO IV OR ORAL CONT CT DOSE: 353.84 mGy.cm HISTORY: Pain Right flank pain, kidney stone TECHNIQUE: Multiaxial CT images of the abdomen and pelvis were performed without contrast. A dose lowering technique was utilized adhering to the principles of ALARA. COMPARISON STUDY: None FINDINGS: Lung bases remain clear. Minimal basilar atelectatic change. Gallstones though the gallbladder neck. Apparent choledocholithiasis with debris and/or small gravel within the distal common bile duct. Moderate atrophy of the pancreas. Kidneys are considered negative for calcification or hydronephrosis. The bowel pattern is nonobstructive. Chronic sigmoid diverticulosis. No evidence for acute diverticulitis. Bladder is midline with no contained calcifications. The appendix appears normal. IMPRESSION: 1. Chronic sigmoid diverticulosis. 2. No evidence for acute diverticulitis. 3. Gallstones within the gallbladder neck with a component of choledocholithiasis. GALLBLADDER-ABD LIMITED HISTORY: 88 years-old Female RUQ pain acute right upper quadrant abdominal pain COMPARISON: CT abdomen and pelvis 01/20/2018 TECHNIQUE: Multiple real-time sonographic images of the abdominal right upper quadrant were obtained assessing grayscale appearance and color flow FINDINGS: The imaged pancreas appears atrophic and unremarkable. Pancreatic duct measures 2 mm. Slightly increased echogenicity of the liver is noted which is nonspecific without focal mass or intrahepatic biliary ductal dilation identified. Shadowing gallstones are noted within the gallbladder neck along with sludge. No wall thickening or pericholecystic fluid collections. No right upper quadrant tenderness was reported. The common bile duct is mildly dilated, 1.1 cm with previously suggested choledocholithiasis is not appreciated by sonography. The imaged right kidney appears mildly atrophic without hydronephrosis. IMPRESSION: 1. Cholelithiasis and gallbladder sludge without sonographic evidence of acute cholecystitis. 2. Mildly dilated common bile duct, 1.1 cm with previously noted material within the common bile duct seen by CT not identified. 3. No intrahepatic biliary ductal dilation. VENOUS DOPPLER LWR EXT BILA HISTORY: Pain. Edema. leg cramps COMPARISON STUDY: None. FINDINGS: There is normal compressibility, flow, and augmentation within the bilateral lower extremity deep venous systems. IMPRESSION: No DVT within the right or left lower extremity. Assessment & Plan This patient had right upper quadrant pain and has cholelithiasis. There is suggestion of choledocholithiasis as well. She is scheduled for an ERCP tomorrow. We are going to try to plan for Rosi cystectomy following that. I have explained her the laparoscopic cholecystectomy and the possible need to convert to an open procedure. I explained the possible complications associated with those procedures. She is signed a consent form.
[2018-01-21] VITALS (10 sets, daily range): BP systolic 113–160; BP diastolic 64–73; PULSE 67–89; TEMP 36.9–37.6; O2SAT 91–96
[2018-01-21] MEDS ORDERED: NSS + 20MEQ KCL 1000ML 1,000 ML IV SCH (02:30)
[2018-01-21] MEDS: LEVOTHYROXINE 50 MCG TAB PO SCH (05:37)
[2018-01-21 07:14] LABS: BASO % 0.1 %; BASO ABS # 0.02 K/uL (0-0.2); EOS ABS # 0.01 K/uL (0-0.5); HEMATOCRIT 33.9 % (37-47); HEMOGLOBIN 10.8 g/dL (12.0-16.0); IG# 0.06 K/uL (0.00-0.02); MEAN CELL VOLUME 85.8 fL (80-100); MEAN CORPUSCULAR HEMOGLOBIN 27.3 pg (25-34); MEAN CORPUSCULAR HGB CONC 31.9 g/dl (32-36); MEAN PLATELET VOLUME 10.5 fL (7.4-10.4); MONO % 8.3 %; MONO ABS # 1.76 K/uL (0.11-0.59); NEUT % 84.3 %; NEUT ABS # 17.93 K/uL (1.4-6.5); PLATELET COUNT 246 K/uL (130-400); RED CELL DISTRIBUTION WIDTH CV 14.8 % (11.5-14.5); RED CELL DISTRIBUTION WIDTH SD 46.6 fL (36.4-46.3); WHITE BLOOD COUNT 21.28 K/uL (4.8-10.8)
[2018-01-21 07:44] LABS: ALBUMIN 2.7 gm/dl (3.4-5.0); CALCIUM 8.6 mg/dl (8.5-10.1); CREATININE 1.61 mg/dl (0.60-1.20); POTASSIUM 4.2 mmol/L (3.5-5.1); TOTAL PROTEIN 6.7 gm/dl (6.4-8.2)
[2018-01-21] MEDS ORDERED: FENTANYL CITRATE INJ 50 MCG/1 ML 2 ML VIAL IV PRN (08:00)
[2018-01-21] MEDS ORDERED: ONDANSETRON INJ 2 MG/ML 2 ML VIAL IV PRN (08:00)
[2018-01-21] MEDS ORDERED: EpHEDrine SULFATE INJ 50 MG/ML AMP IV PRN (08:00)
[2018-01-21] MEDS ORDERED: ATROPINE SULFATE 0.1 MG/ML 5ML SYR IV PRN (08:00)
--- NOTE | 2018-01-21 09:18 | History & Physical Bridge Note ---
H&P Re-Evaluation Bridge Note: I have examined the patient, reviewed the History & Physical and in the interval since the performance of the History & Physical I have noted the following changes of clinical significance: No changes noted. We have discussed the risks of ERCP to include bleeding, infection, perforation, pain, pancreatitis and failed cannulation. After ERCP patient to have a cholecystectomy with Dr. Laurent.
[2018-01-21] MEDS ORDERED: PROPOFOL IV EMULSION 10 MG/ML 20 ML VIAL IV ONE (09:34)
[2018-01-21] MEDS ORDERED: ONDANSETRON INJ 2 MG/ML 2 ML VIAL ONE (09:34)
[2018-01-21] MEDS ORDERED: LIDOCAINE HCL 2% 2 ML VIAL (20MG/ML) ONE (09:34)
[2018-01-21] MEDS ORDERED: DEXAMETHASONE SOD INJ 4 MG/ML VIAL ONE (09:34)
[2018-01-21] MEDS ORDERED: GLYCOPYRROLATE INJ 0.2 MG/ML VIAL ONE (09:34)
[2018-01-21] MEDS ORDERED: NEOSTIGMINE METHYLSULFATE 5 MG/5 ML SYR ONE (09:34)
[2018-01-21] MEDS ORDERED: MIDAZOLAM HCL 1 MG/ML 2ML VIAL ONE (09:34)
[2018-01-21] MEDS ORDERED: FENTANYL CITRATE INJ 50 MCG/1 ML 2 ML VIAL ONE (09:34)
[2018-01-21] MEDS ORDERED: HEPARIN SOD (PORCINE) 1000 UNIT/ML 10 ML VIAL ONE (09:39)
[2018-01-21] MEDS ORDERED: CONRAY 60% 50 ML VIAL ONE (09:39)
[2018-01-21] MEDS ORDERED: BUPIVACAINE 0.5 % 5 MG/1 ML MPF 30ML VIAL ONE (09:39)
[2018-01-21] MEDS ORDERED: CEFAZOLIN SOD 1 GM VIAL ONE (09:39)
[2018-01-21] MEDS ORDERED: INDOMETHACIN 50 MG SUPP PR ONE (09:40)
[2018-01-21] MEDS ORDERED: NURSING VERBAL MED ORDER ONE ×2 (09:45→13:30)
--- NOTE | 2018-01-21 09:50 | History & Physical Bridge Note ---
H&P Re-Evaluation Bridge Note: I have examined the patient, reviewed the History & Physical and in the interval since the performance of the History & Physical I have noted the following changes of clinical significance: No changes noted
[2018-01-21] MEDS ORDERED: LACTATED RINGER'S 1000ML 1,000 ML IV SCH (10:00)
[2018-01-21] MEDS ORDERED: CEFOXITIN SOD 1 GM VIAL ONE (10:56)
--- NOTE | 2018-01-21 11:02 | [facility] Post Operative Brief Note ---
Immediate Operative Summary Operative Date Jan 21, 2018. Pre-Operative Diagnosis Biliary obstruction Post-Operative Diagnosis CBD stones Procedure(s) Performed 1. Endoscopic Retrograde Cholangiopancreatogram with Sphincterotomy,Biliary balloon, placement of pancreatic duct sten Surgeon Dr. Day Fish Grader Surgeon(s) None Estimated Blood Loss 0 Findings Consistent with Post-Op Diagnosis Specimens None Drains Pancreatic stent Anesthesia Type General Complication(s) none Disposition Accompanied Pt To Recover: no Disposition: Cholecystectomy with Dr. Laurent
--- NOTE | 2018-01-21 11:16 | DIAGNOSTIC IMAGING REPORT ---
ERCP BILIARY DUCTAL CLINICAL HISTORY: ERCP IN OR COMPARISON STUDY: Right upper quadrant ultrasound and CT of the abdomen and pelvis January 20, 2018. FLUOROSCOPY TIME: 1 minute and 40 seconds. FINDINGS: 12 fluoroscopic images from ERCP were submitted for interpretation. These images demonstrate cannulation of the common bile duct and main pancreatic duct. These images demonstrate filling defects within the common bile duct suggestive of calculi. A balloon sweep through the common bile duct is performed. Pancreatic stent is in place. IMPRESSION: Fluoroscopic images from ERCP, as described above. Electronically signed by: Enrique Harris M.D. 01/21/2018 11:15 AM Dictated Date/Time: 01/21/2018 11:13 AM
[2018-01-21] MEDS ORDERED: ROCURONIUM BROMIDE 10 MG/ML 5 ML VIAL IV ONE (11:22)
--- NOTE | 2018-01-21 11:51 | GI REPORT ---
Procedure Date: 01/21/2018 9:33 AM Procedure: ERCP Indications: Abdominal pain of suspected biliary origin, Bile duct stone on Computed Tomogram Scan Medicines: General Anesthesia Complications: No immediate complications. Estimated blood loss: Minimal. Estimated Blood Loss: Estimated blood loss was minimal. Procedure: Pre-Anesthesia Assessment: - Prior to the procedure, a History and Physical was performed, and patient medications, allergies and sensitivities were reviewed. The patient's tolerance of previous anesthesia was reviewed. - The risks and benefits of the procedure and the sedation options and risks were discussed with the patient. All questions were answered and informed consent was obtained. - Patient identification and proposed procedure were verified prior to the procedure by the physician, the nurse and the cut out operator. The procedure was verified in the procedure room. - Pre-procedure physical examination revealed no contraindications to sedation. - ASA Grade Assessment: III - A patient with severe systemic disease. - The anesthesia plan was to use general anesthesia. - Immediately prior to administration of medications, the patient was re-assessed for adequacy to receive sedatives. - The heart rate, respiratory rate, oxygen saturations, blood pressure, adequacy of pulmonary ventilation, and response to care were monitored throughout the procedure. - The physical status of the patient was re-assessed after the procedure. After obtaining informed consent, the scope was passed under direct vision. Throughout the procedure, the patient's blood pressure, pulse, and oxygen saturations were monitored continuously. The Scope was introduced through the mouth, and advanced to the duodenum and used to inject contrast into the bile duct. The ERCP was accomplished without difficulty. The patient tolerated the procedure well. Findings: The iv therapy nurse film was normal. The esophagus was successfully intubated under direct vision without detailed examination of the pharynx, larynx, and associated structures, and upper GI tract. The upper GI tract was grossly normal. The major papilla was located entirely within a diverticulum. The ventral pancreatic duct was inadvertently cannulated with the short-nosed traction sphincterotome and guidewire without any complications. The wire was left in place to aid in biliary cannulation. The bile duct was deeply cannulated with the short-nosed traction sphincterotome and a second 0.035 in Acrobat 2 guidewire. Contrast was injected. I personally interpreted the bile duct images. Contrast extended to the entire biliary tree. The main bile duct was diffusely dilated. The largest diameter was 12 mm. The middle third of the main bile duct contained filling defect(s) thought to be a stone and sludge. Biliary sphincterotomy was made with a monofilament Fusion OMNI sphincterotome using ERBE electrocautery. There was no post-sphincterotomy bleeding. One 5 Fr by 7 cm pancreatic stent with a full external pigtail was placed 7 cm into the ventral pancreatic duct to help prevent PEP. Clear fluid flowed through the stent. The stent was in good position. The lower third of the main bile duct was successfully dilated with an 8 mm balloon dilator held inflated for 1 minute. To discover objects, the biliary tree was swept with a 15 mm balloon starting at the mid duct and working up to the bifurcation over several sweeps. Thick green sludge was swept from the duct. A few large green pigmented stones were removed. No stones remained on occlusion cholangiogram. Indomethacin 100 mg was given via suppository to decrease the risk of post-ERCP pancreatitis (PEP). The endoscope was withdrawn from the patient. Impression: - The major papilla was located entirely within a diverticulum. - A filling defect consistent with a stone and sludge was seen on the cholangiogram.. - Choledocholithiasis was found. Complete removal was accomplished by biliary sphincterotomy and balloon extraction. - A biliary sphincterotomy was performed. - One pancreatic stent was placed into the ventral pancreatic duct. - Indomethacin given to decrease risk of post-ERCP pancreatitis. Recommendation: - Avoid aspirin and nonsteroidal anti-inflammatory medicines for 1 week. - Clear liquid diet today. - Observe patient's clinical course following today's ERCP with therapeutic intervention. - Perform a flat plate abdominal x-ray in 3 weeks to ensure passage of the pancreatic stent. - Cholecystectomy per General Surgery Lillie Day D.O. Lillie Day DO 01/21/2018 11:50:36 AM This report has been signed electronically. Note Initiated On: 01/21/2018 9:33 AM I attest to the content of the Intraoperative Record and orders documented therein, exceptions below
--- NOTE | 2018-01-21 11:56 | [facility] Post Operative Brief Note ---
Immediate Operative Summary Operative Date Jan 21, 2018. Pre-Operative Diagnosis Biliary Obstruction, Gallstones within the gallbladder neck with a component of choledocholelithiasis Post-Operative Diagnosis Common Bile Duct Stones, Gallstones within the gallbladder neck with a component of choledocholelithiasis Procedure(s) Performed 1. Endoscopic Retrograde Cholangiopancreatogram with Sphincterotomy,Biliary balloon, placement of pancreatic duct stent 2. Laparoscopic Cholecystectomy Surgeon Dr. Lillie Day and Dr. Phu Laurent Dry Cure Worker Surgeon(s) Mely Nur PA-C Estimated Blood Loss ERCP= 3 mL, Lap Jacqueline= 20 mL Findings Consistent with Post-Op Diagnosis Specimens ERCP specimens labeled and handled by Endoscopy staff. Permanent specimens A: Gallbladder and contents Drains one J-P in the suhepatic space Anesthesia Type General Complication(s) none Disposition Disposition: Recovery Room / PACU
[2018-01-21] MEDS ORDERED: OXYCODONE/ACETAMINOPHEN 5-325 TAB PO PRN (12:00)
[2018-01-21] MEDS ORDERED: HYDROmorphone INJ 1 MG/ML SYR IV PRN (12:00)
--- NOTE | 2018-01-21 12:48 | Anesthesiology Progress Note ---
Anesthesia Post Op Note Date & Time Jan 21, 2018 at 12:47 Vital Signs Pain Intensity: 0 Vital Signs Past 12 Hours Date Time Temp Pulse Resp B/P (MAP) Pulse Ox O2 Delivery O2 Flow Rate FiO2 01/21/18 12:42 37.1 72 16 145/66 (77) 95 Oxymask 2 01/21/18 12:36 143/69 01/21/18 12:35 78 14 01/21/18 12:35 78 14 94 01/21/18 12:34 77 15 01/21/18 12:34 77 15 94 01/21/18 12:31 146/63 01/21/18 12:29 83 14 95 01/21/18 12:29 84 14 01/21/18 12:28 86 16 96 01/21/18 12:28 86 16 01/21/18 12:27 134/58 01/21/18 12:23 68 14 01/21/18 12:23 67 14 95 01/21/18 12:22 67 13 95 01/21/18 12:22 67 13 95 01/21/18 12:22 67 13 01/21/18 12:22 67 13 01/21/18 12:21 126/58 01/21/18 12:21 126/58 01/21/18 12:17 73 14 94 01/21/18 12:17 71 14 01/21/18 12:17 73 14 94 01/21/18 12:17 71 14 01/21/18 12:16 131/60 01/21/18 12:16 131/60 01/21/18 12:12 75 14 94 01/21/18 12:12 74 14 01/21/18 12:12 75 14 94 01/21/18 12:12 74 14 01/21/18 12:11 130/69 01/21/18 12:11 130/69 01/21/18 12:07 84 38 01/21/18 12:07 84 38 145/68 95 01/21/18 12:07 84 38 01/21/18 12:07 36.5 83 16 145/68 (74) 96 Oxymask 10 01/21/18 12:07 84 38 145/68 95 01/21/18 07:40 37.0 71 18 113/64 (80) 91 Room Air 01/21/18 07:35 Room Air Notes Mental Status: alert / awake / arousable, participated in evaluation Pt Amnestic to Procedure: Yes Nausea / Vomiting: adequately controlled Pain: adequately controlled Airway Patency, RR, SpO2: stable & adequate BP & HR: stable & adequate Hydration State: stable & adequate Anesthetic Complications: no major complications apparent
--- NOTE | 2018-01-21 12:52 | OPERATIVE REPORT ---
DATE OF OPERATION: 01/21/2018 PREOPERATIVE DIAGNOSES: Cholelithiasis, cholecystitis status post endoscopic retrograde cholangiopancreatography for choledocholithiasis. POSTOPERATIVE DIAGNOSES: Cholelithiasis, acute cholecystitis status post endoscopic retrograde cholangiopancreatography for choledocholithiasis. PROCEDURE: Laparoscopic cholecystectomy. SURGEON: Phu Laurent MD ENTRY LEVEL ELECTRICIAN: Mely Nur PA-C FINDINGS: The gallbladder wall was thickened. There were adhesions of the omentum to the undersurface of the right lobe of the liver as well as to the gallbladder. There were large stones within the lumen of the gallbladder. There was no dilation of the cystic duct. The liver was of normal size and contour. The visible bowel appeared normal. TECHNIQUE: The patient was given a general anesthetic before the ERCP. Once it was completed, she was turned onto her back and the area was prepped and draped in the usual sterile fashion. Transverse incision was made below the umbilicus, carried down through the subcutaneous tissue to the fascia, which was grasped with 2 Yasir clamps and incised between. The peritoneum was identified, incised, and the introducer was placed bluntly. The abdomen was then insufflated to a pressure of 15 mmHg with carbon dioxide. The upper midline, midclavicular and anterior axillary introducers were placed under direct vision through small skin incisions. Traction was placed on the gallbladder and the adhesions to the gallbladder were taken down using blunt and cautery dissection where appropriate. In order to not tear the capsule of the liver, I then took down adhesions that were attached to the undersurface of the right lobe of the liver. There were still some areas where the capsule was denuded with minimal bleeding that was controlled easily with cautery. Traction was placed on the gallbladder beginning on the lateral aspect of the infundibulum. The peritoneum was opened and the infundibulum was dissected away from the lateral side of the liver. I then worked towards the medial side and took fatty tissue and the peritoneum off the anterior surface of the infundibulum and neck of the gallbladder and then worked into the triangle of Calot opening it. I dissected the infundibulum away from the liver on the medial side allowing for better mobility. Further dissection of thickened lymphatics and fatty tissue allowed me to expose the cystic duct. There were some thickened tissues attached to the cystic duct, which were bluntly and then divided using cautery allowing me to expose the entire cystic duct and skeletonize it in 180 degrees. Further dissection of the lower body of the gallbladder on the lateral and medial side and further dissection then carried out posterior to that area where the cystic duct was located and allowed a good window and I was able to confidently identify the cystic duct gallbladder junction. Three clips were placed on the proximal cystic duct, one near its junction with the gallbladder and it was divided. Further dissection was then carried out in the triangle of Calot. There were 3 separate branches of the cystic artery, one of which was very narrow. One in the triangle of Calot was isolated, clamped twice proximally once near the gallbladder and divided. In dissecting the gallbladder away from the liver, there was another vessel traveling up along the gallbladder bed of the liver and the lateral side and there were 2 extensions of that going straight to the gallbladder and these were individually isolated, clamped and divided. Gallbladder was then peeled off the liver bed using electrocautery. It was placed into an Endobag and brought out through the upper midline incision where I had increased the size of the incision in all layers in order to extract it within the bag, but that was accomplished. That introducer was replaced and the liver edge was elevated. The subdiaphragmatic space and the subhepatic space were irrigated and the irrigation was removed and that was repeated until the return was clear. The gallbladder bed of the liver was inspected. There was a small amount of oozing from the lateral aspect near the edge of the liver and this was easily controlled with cautery. Further irrigation was completed. It was again inspected and there was no bleeding. Any irrigation placed was removed. A 10-mm flat Jacob-Blanco was then placed in the subhepatic space and brought out through the anterior axillary introducer site secured with a 3-0 nylon. The gas was allowed to escape and the introducers were removed. The fascia of the umbilical and upper midline introducer sites was closed with interrupted 0 Vicryl and the skin of all the incisions was closed with 4-0 Monocryl in either an interrupted or running subcuticular fashion. Skin was anesthetized with 0.5% Marcaine. The skin was cleansed, dried, benzoin placed, Steri-Strips applied. Estimated blood loss was 20 mL. Sponge, needle and instrument counts were correct prior to closure. The patient tolerated the surgical procedure without complication and was transferred to recovery. I attest to the content of the Intraoperative Record and any orders documented therein. Any exception s are noted below.
[2018-01-21] MEDS: LISINOPRIL 40 MG TAB PO SCH (13:25)
[2018-01-21] MEDS: AMLODIPINE BESYLATE 5 MG TAB PO SCH (13:25)
[2018-01-21] MEDS: ENOXAPARIN 40 MG/0.4 ML SYR SQ SCH (13:26)
[2018-01-21] MEDS: SODIUM CHLORIDE 0.9% 1000ML 1,000 ML IV SCH (14:54)
--- NOTE | 2018-01-21 16:14 | Progress Note ---
Subjective Date of Service: Jan 21, 2018. Subjective Pt evaluation today including: conversation w/ patient, physical exam, lab review, review of studies, review of inpatient medication list Saw/examined the patient in room 375 status post lap simone - she is laying comfortably, but tired No significant pain Problem List Medical Problems: (1) Choledocholithiasis Status: Acute (2) Hypertension Status: Chronic (3) Hypothyroidism Status: Chronic Review of Systems Constitutional: No fever, No chills Respiratory: No shortness of breath Cardiac: No chest pain Abdomen: No pain, No nausea, No vomiting, No diarrhea Musculoskeletal: No joint pain Medications Current Inpatient Medications Medications (Trade) Dose Ordered Sig/Tano Route Start Time Stop Time Status Last Admin Dose Admin Acetaminophen (Tylenol Tab) 650 mg Q4H PRN PO 01/20/18 06:45 02/19/18 06:44 01/20/18 19:07 650 MG Amlodipine Besylate (Norvasc Tab) 2.5 mg DAILY PO 01/20/18 09:00 02/19/18 08:59 01/21/18 13:25 2.5 MG Levothyroxine Sodium (Synthroid Tab) 50 mcg DAILYBB PO 01/20/18 09:00 02/19/18 08:59 01/21/18 05:37 50 MCG Lisinopril (Zestril Tab) 40 mg DAILY PO 01/20/18 09:00 02/19/18 08:59 01/21/18 13:25 40 MG Prochlorperazine Edisylate 5 mg/ Syringe 5 ml @ 5 mls/min Q6H PRN IV 01/20/18 06:45 02/19/18 06:44 Tramadol HCl (Ultram Tab) not relieved by tylenol @ Q6H PRN PO 01/20/18 06:45 02/19/18 06:44 01/20/18 09:00 50 MG Miscellaneous (Iv Fluids Completed) 1 ea PRN PRN N/A 01/20/18 09:00 01/20/19 08:59 Lactated Ringer's 1,000 ml @ 15 mls/hr Q24H IV 01/21/18 10:00 01/22/18 09:59 Oxycodone/ Acetaminophen (Percocet 5-325mg Tab) 1 tab Q4H PRN PO 01/21/18 12:00 02/04/18 11:59 Hydromorphone HCl (Dilaudid Inj) 0.5 mg Q1H PRN IV 01/21/18 12:00 02/04/18 11:59 Sodium Chloride 1,000 ml @ 80 mls/hr [id number] IV 01/21/18 14:30 02/20/18 14:29 01/21/18 14:54 80 MLS/HR Enoxaparin Sodium (Lovenox Inj) 30 mg Q24H SQ 01/22/18 09:00 02/21/18 08:59 Objective Vital Signs Date Time Temp Pulse Resp B/P (MAP) Pulse Ox O2 Delivery O2 Flow Rate FiO2 01/21/18 15:00 37.0 84 16 148/73 (98) 96 Nasal Cannula 2.0 01/21/18 14:00 36.9 81 19 160/69 (99) 96 Nasal Cannula 2.0 01/21/18 13:28 36.9 71 16 146/66 (92) 94 Nasal Cannula 2.0 01/21/18 13:19 96 Nasal Cannula 2.0 01/21/18 13:00 36.9 67 16 149/70 (96) 96 Nasal Cannula 2.0 01/21/18 12:47 72 10 01/21/18 12:47 72 10 95 01/21/18 12:46 136/68 01/21/18 12:42 72 17 01/21/18 12:42 71 17 95 01/21/18 12:42 37.1 72 16 145/66 (77) 95 Oxymask 2 01/21/18 12:41 145/66 01/21/18 12:37 77 17 95 01/21/18 12:37 78 17 01/21/18 12:36 143/69 01/21/18 12:35 78 14 01/21/18 12:35 78 14 94 01/21/18 12:34 77 15 01/21/18 12:34 77 15 94 01/21/18 12:31 146/63 01/21/18 12:29 83 14 95 01/21/18 12:29 84 14 01/21/18 12:28 86 16 96 01/21/18 12:28 86 16 01/21/18 12:27 134/58 01/21/18 12:23 68 14 01/21/18 12:23 67 14 95 01/21/18 12:22 67 13 95 01/21/18 12:22 67 13 95 01/21/18 12:22 67 13 01/21/18 12:22 67 13 01/21/18 12:21 126/58 01/21/18 12:21 126/58 01/21/18 12:17 73 14 94 01/21/18 12:17 71 14 01/21/18 12:17 73 14 94 01/21/18 12:17 71 14 01/21/18 12:16 131/60 01/21/18 12:16 131/60 01/21/18 12:12 75 14 94 01/21/18 12:12 74 14 01/21/18 12:12 75 14 94 01/21/18 12:12 74 14 01/21/18 12:11 130/69 01/21/18 12:11 130/69 01/21/18 12:07 84 38 01/21/18 12:07 84 38 145/68 95 01/21/18 12:07 84 38 01/21/18 12:07 36.5 83 16 145/68 (74) 96 Oxymask 10 01/21/18 12:07 84 38 145/68 95 01/21/18 07:40 37.0 71 18 113/64 (80) 91 Room Air 01/21/18 07:35 Room Air 01/20/18 23:35 Room Air 01/20/18 22:44 37.2 92 15 106/56 (73) 91 Room Air 01/20/18 19:21 94 Room Air 01/20/18 16:50 37.6 Physical Exam General Appearance: no apparent distress, + pertinent finding (somnolent, tired ) Respiratory/Chest: no respiratory distress, no accessory muscle use Cardiovascular: regular rate, rhythm Abdomen: + pertinent finding (Kevin drain in place, soft) Laboratory Results Last 24 Hours Test 01/20/18 16:50 01/21/18 06:21 Urine Color YELLOW Urine Appearance CLEAR Urine pH 5.5 Urine Specific [place] 1.018 Urine Protein NEG Urine Glucose (UA) NEG Urine Ketones NEG Urine Occult Blood 2+ Urine Nitrite NEG Urine Bilirubin NEG Urine Urobilinogen NEG Urine Leukocyte Esterase NEG Urine WBC (Auto) 1-5 /hpf Urine RBC (Auto) 5-10 /hpf Urine Hyaline Casts (Auto) 5-10 /lpf Urine Epithelial Cells (Auto) >30 /lpf Urine Bacteria (Auto) NEG White Blood Count 21.28 K/uL Red Blood Count 3.95 M/uL Hemoglobin 10.8 g/dL Hematocrit 33.9 % Mean Corpuscular Volume 85.8 fL Mean Corpuscular Hemoglobin 27.3 pg Mean Corpuscular Hemoglobin Concent 31.9 g/dl Platelet Count 246 K/uL Mean Platelet Volume 10.5 fL Neutrophils (%) (Auto) 84.3 % Lymphocytes (%) (Auto) 7.0 % Monocytes (%) (Auto) 8.3 % Eosinophils (%) (Auto) 0.0 % Basophils (%) (Auto) 0.1 % Neutrophils # (Auto) 17.93 K/uL Lymphocytes # (Auto) 1.50 K/uL Monocytes # (Auto) 1.76 K/uL Eosinophils # (Auto) 0.01 K/uL Basophils # (Auto) 0.02 K/uL RDW Standard Deviation 46.6 fL RDW Coefficient of Variation 14.8 % Immature Granulocyte % (Auto) 0.3 % Immature Granulocyte # (Auto) 0.06 K/uL Sodium Level 138 mmol/L Potassium Level 4.2 mmol/L Chloride Level 106 mmol/L Carbon Dioxide Level 24 mmol/L Anion Gap 8.0 mmol/L Blood Urea Nitrogen 20 mg/dl Creatinine 1.61 mg/dl Est Creatinine Clear Calc Drug Dose 20.9 ml/min Estimated GFR () 33.2 Estimated GFR (Non- 28.7 BUN/Creatinine Ratio 12.5 Random Glucose 99 mg/dl Calcium Level 8.6 mg/dl Total Bilirubin 0.6 mg/dl Direct Bilirubin 0.2 mg/dl Aspartate Amino Transf (AST/SGOT) 44 U/L Alanine Aminotransferase (ALT/SGPT) 30 U/L Alkaline Phosphatase 90 U/L Total Protein 6.7 gm/dl Albumin 2.7 gm/dl Globulin 4.0 gm/dl Albumin/Globulin Ratio 0.7 Lipase 88 U/L Assessment and Plan This is an 88 year old female with a PMH of HTN, hypothyroidism - presents with acute RUQ abdominal pain Choledocholithiasis 01/21 * s/p lap simone, ERCP * monitor labs, electrolytes, pain control * ambulate in hallways 01/20 * appreciate GI input * plan for now is for ERCP in AM * general surgery has also been consulted * clear liquid diet for now; NPO after midnight Acute Kidney Injury * creatinine up to 1.6 * will add more fluids post-operatively to prevent worsening dehydration and secondary to blood loss * if still elevated, will hold CAROLE-I HTN * BP stable; continue home medis Hypothyroidism * Synthroid DVT ppx * Lovenox DNR
[2018-01-22 03:28] VITALS: BP 154/73; PULSE 79; TEMP 36.8; O2SAT 92
[2018-01-22] MEDS: SODIUM CHLORIDE 0.9% 1000ML 1,000 ML IV SCH (03:28)
[2018-01-22] MEDS: LEVOTHYROXINE 50 MCG TAB PO SCH (05:33)
[2018-01-22 07:52] VITALS: BP 146/78; PULSE 82; TEMP 36.9; O2SAT 90
[2018-01-22 07:58] LABS: ALBUMIN 2.2 gm/dl (3.4-5.0); CALCIUM 8.1 mg/dl (8.5-10.1); CREATININE 0.94 mg/dl (0.60-1.20); POTASSIUM 3.8 mmol/L (3.5-5.1)
[2018-01-22 08:07] LABS: HEMATOCRIT 30.3 % (37-47); HEMOGLOBIN 9.6 g/dL (12.0-16.0); MEAN CELL VOLUME 85.6 fL (80-100); MEAN CORPUSCULAR HEMOGLOBIN 27.1 pg (25-34); MEAN CORPUSCULAR HGB CONC 31.7 g/dl (32-36); MEAN PLATELET VOLUME 10.9 fL (7.4-10.4); PLATELET COUNT 201 K/uL (130-400); RED CELL DISTRIBUTION WIDTH CV 14.8 % (11.5-14.5); RED CELL DISTRIBUTION WIDTH SD 46.8 fL (36.4-46.3)
[2018-01-22] MEDS ORDERED: ENOXAPARIN 30 MG/0.3 ML SYR SQ SCH (09:00)
[2018-01-22] MEDS: AMLODIPINE BESYLATE 5 MG TAB PO SCH (09:07)
[2018-01-22] MEDS: LISINOPRIL 40 MG TAB PO SCH (09:08)
--- NOTE | 2018-01-22 09:54 | Gastroenterology Progress Note ---
Progress Note Date of Service: Jan 22, 2018 Subjective Pt evaluation today including: conversation w/ patient, physical exam, chart review, lab review pt seen and evaluated, chart reviewed. no acute events overnight. is s/p ERCP w / pancreatic stent placement and cholecystectomy. feels well. no abdominal pain. no nausea, vomiting. no fever, chills. is passing gas, tolerating diet. wants to go home. Review of Systems Constitutional: No fever, No chills Respiratory: No cough, No shortness of breath Cardiac: No chest pain, No edema Abdomen: No pain, No nausea, No vomiting, No diarrhea Skin: No rash, No color change, No jaundice Medications Current Inpatient Medications Medications (Trade) Dose Ordered Sig/Tano Route Start Time Stop Time Status Last Admin Dose Admin Acetaminophen (Tylenol Tab) 650 mg Q4H PRN PO 01/20/18 06:45 02/19/18 06:44 01/20/18 19:07 650 MG Amlodipine Besylate (Norvasc Tab) 2.5 mg DAILY PO 01/20/18 09:00 02/19/18 08:59 01/22/18 09:07 2.5 MG Levothyroxine Sodium (Synthroid Tab) 50 mcg DAILYBB PO 01/20/18 09:00 02/19/18 08:59 01/22/18 05:33 50 MCG Lisinopril (Zestril Tab) 40 mg DAILY PO 01/20/18 09:00 02/19/18 08:59 01/22/18 09:08 40 MG Prochlorperazine Edisylate 5 mg/ Syringe 5 ml @ 5 mls/min Q6H PRN IV 01/20/18 06:45 02/19/18 06:44 Tramadol HCl (Ultram Tab) not relieved by tylenol @ Q6H PRN PO 01/20/18 06:45 02/19/18 06:44 01/20/18 09:00 50 MG Miscellaneous (Iv Fluids Completed) 1 ea PRN PRN N/A 01/20/18 09:00 01/20/19 08:59 Lactated Ringer's 1,000 ml @ 15 mls/hr Q24H IV 01/21/18 10:00 01/22/18 09:59 Oxycodone/ Acetaminophen (Percocet 5-325mg Tab) 1 tab Q4H PRN PO 01/21/18 12:00 02/04/18 11:59 Hydromorphone HCl (Dilaudid Inj) 0.5 mg Q1H PRN IV 01/21/18 12:00 02/04/18 11:59 Sodium Chloride 1,000 ml @ 80 mls/hr [id number] IV 01/21/18 14:30 02/20/18 14:29 01/22/18 03:28 80 MLS/HR Enoxaparin Sodium (Lovenox Inj) 30 mg Q24H SQ 01/22/18 09:00 02/21/18 08:59 01/22/18 09:08 30 MG Objective Vital Signs Date Time Temp Pulse Resp B/P (MAP) Pulse Ox O2 Delivery O2 Flow Rate FiO2 01/22/18 07:59 Room Air 01/22/18 07:52 36.9 82 16 146/78 (100) 90 Room Air 01/22/18 03:28 36.8 79 18 154/73 (100) 92 Room Air 01/21/18 23:00 37.3 89 20 134/67 (89) 93 Room Air 01/21/18 20:24 37.6 84 17 135/64 (87) 92 Room Air 01/21/18 19:30 91 Room Air 01/21/18 19:30 91 Room Air 01/21/18 16:00 37.0 76 18 144/69 (94) 93 Nasal Cannula 2.0 01/21/18 15:00 37.0 84 16 148/73 (98) 96 Nasal Cannula 2.0 01/21/18 14:00 36.9 81 19 160/69 (99) 96 Nasal Cannula 2.0 01/21/18 13:28 36.9 71 16 146/66 (92) 94 Nasal Cannula 2.0 01/21/18 13:19 96 Nasal Cannula 2.0 01/21/18 13:00 36.9 67 16 149/70 (96) 96 Nasal Cannula 2.0 01/21/18 12:47 72 10 01/21/18 12:47 72 10 95 01/21/18 12:46 136/68 01/21/18 12:42 72 17 01/21/18 12:42 71 17 95 01/21/18 12:42 37.1 72 16 145/66 (77) 95 Oxymask 2 01/21/18 12:41 145/66 01/21/18 12:37 77 17 95 01/21/18 12:37 78 17 01/21/18 12:36 143/69 01/21/18 12:35 78 14 01/21/18 12:35 78 14 94 01/21/18 12:34 77 15 01/21/18 12:34 77 15 94 01/21/18 12:31 146/63 01/21/18 12:29 83 14 95 01/21/18 12:29 84 14 01/21/18 12:28 86 16 96 01/21/18 12:28 86 16 01/21/18 12:27 134/58 01/21/18 12:23 68 14 01/21/18 12:23 67 14 95 01/21/18 12:22 67 13 95 01/21/18 12:22 67 13 95 01/21/18 12:22 67 13 01/21/18 12:22 67 13 01/21/18 12:21 126/58 01/21/18 12:21 126/58 01/21/18 12:17 73 14 94 01/21/18 12:17 71 14 01/21/18 12:17 73 14 94 01/21/18 12:17 71 14 01/21/18 12:16 131/60 18 12:16 131/60 18 12:12 75 14 94 01/21/18 12:12 74 14 01/21/18 12:12 75 14 94 01/21/18 12:12 74 14 01/21/18 12:11 130/69 1518 12:11 130/69 18 12:07 84 38 01/21/18 12:07 84 38 145/68 95 01/21/18 12:07 84 38 18 12:07 36.5 83 16 145/68 (74) 96 Oxymask 10 01/21/18 12:07 84 38 145/68 95 Physical Exam General Appearance: no apparent distress Eyes: PERRL ENT: hearing grossly normal Neck: supple, trachea midline Respiratory/Chest: lungs clear, normal breath sounds, no respiratory distress, no accessory muscle use Cardiovascular: regular rate, rhythm Abdomen: normal bowel sounds, non tender, soft, no organomegaly Neurologic/Psych: alert, normal mood/affect, oriented x 3 Skin: normal color, no jaundice, warm/dry Laboratory Results Last 24 Hours Test 01/22/18 06:49 White Blood Count 9.50 K/uL Red Blood Count 3.54 M/uL Hemoglobin 9.6 g/dL Hematocrit 30.3 % Mean Corpuscular Volume 85.6 fL Mean Corpuscular Hemoglobin 27.1 pg Mean Corpuscular Hemoglobin Concent 31.7 g/dl RDW Standard Deviation 46.8 fL RDW Coefficient of Variation 14.8 % Platelet Count 201 K/uL Mean Platelet Volume 10.9 fL Sodium Level 140 mmol/L Potassium Level 3.8 mmol/L Chloride Level 108 mmol/L Carbon Dioxide Level 25 mmol/L Anion Gap 7.0 mmol/L Blood Urea Nitrogen 15 mg/dl Creatinine 0.94 mg/dl Est Creatinine Clear Calc Drug Dose 35.8 ml/min Estimated GFR () 63.7 Estimated GFR (Non- 54.9 BUN/Creatinine Ratio 15.6 Random Glucose 76 mg/dl Calcium Level 8.1 mg/dl Total Bilirubin 0.5 mg/dl Aspartate Amino Transf (AST/SGOT) 46 U/L Alanine Aminotransferase (ALT/SGPT) 36 U/L Alkaline Phosphatase 96 U/L Total Protein 6.0 gm/dl Albumin 2.2 gm/dl Globulin 3.8 gm/dl Albumin/Globulin Ratio 0.6 Assessment and Plan 88 year old female s/p ERCP w/ + stones and sluge w/ pancreatic duct stent placement. Had cholecystectomy yesterday w/ improvement of her symptoms. - No GI contraindication to discharge - KUB in 3 weeks - OP GI follow up with midlevel - GI signing off. Please call with any questions or concerns. I saw and evaluated the patient. She reports having some discomfort around her incisions. She has no evidence of pancreatitis at this time. I would suggest that you advance her diet as tolerated. She should have a KUB performed in approximately 3 weeks to ensure passage of the pancreatic stent. Please call with any questions or concerns, GI to sign off
[2018-01-22 10:33] VITALS: O2SAT 90
[2018-01-22 11:47] VITALS: BP 146/66; PULSE 74; TEMP 36.7; O2SAT 92
--- NOTE | 2018-01-22 14:12 | Surgery Progress Note ---
Surgery Progress Note Date of Service Jan 22, 2018. Subjective Post OP Day: 1 + feeling well, + pain controlled, + diet (tolerating regular diet), No nausea, No vomiting Objective Vital Signs: Date Time Temp Pulse Resp B/P (MAP) Pulse Ox O2 Delivery O2 Flow Rate FiO2 01/22/18 11:47 36.7 74 16 146/66 (92) 92 Room Air 01/22/18 10:33 90 Room Air 01/22/18 07:59 Room Air 01/22/18 07:52 36.9 82 16 146/78 (100) 90 Room Air 01/22/18 03:28 36.8 79 18 154/73 (100) 92 Room Air 01/21/18 23:00 37.3 89 20 134/67 (89) 93 Room Air 01/21/18 20:24 37.6 84 17 135/64 (87) 92 Room Air 01/21/18 19:30 91 Room Air 01/21/18 19:30 91 Room Air 01/21/18 16:00 37.0 76 18 144/69 (94) 93 Nasal Cannula 2.0 01/21/18 15:00 37.0 84 16 148/73 (98) 96 Nasal Cannula 2.0 Physical Exam: SERGE drainage (60 cc yresterday, 30 cc first 2 shifts today, serosanguinous) Abdomen: non distended, soft Incision(s): clean, dry, intact, no erythema, no drainage Laboratory Results: Results Past 24 Hours Test 01/22/18 06:49 Range/Units White Blood Count 9.50 4.8-10.8 K/uL Red Blood Count 3.54 4.2-5.4 M/uL Hemoglobin 9.6 12.0-16.0 g/dL Hematocrit 30.3 37-47 % Mean Corpuscular Volume 85.6 80-100 fL Mean Corpuscular Hemoglobin 27.1 25-34 pg Mean Corpuscular Hemoglobin Concent 31.7 32-36 g/dl RDW Standard Deviation 46.8 36.4-46.3 fL RDW Coefficient of Variation 14.8 11.5-14.5 % Platelet Count 201 130-400 K/uL Mean Platelet Volume 10.9 7.4-10.4 fL Sodium Level 140 136-145 mmol/L Potassium Level 3.8 3.5-5.1 mmol/L Chloride Level 108 98-107 mmol/L Carbon Dioxide Level 25 21-32 mmol/L Anion Gap 7.0 3-11 mmol/L Blood Urea Nitrogen 15 7-18 mg/dl Creatinine 0.94 0.60-1.20 mg/dl Est Creatinine Clear Calc Drug Dose 35.8 ml/min Estimated GFR () 63.7 Estimated GFR (Non- 54.9 BUN/Creatinine Ratio 15.6 10-20 Random Glucose 76 70-99 mg/dl Calcium Level 8.1 8.5-10.1 mg/dl Total Bilirubin 0.5 0.2-1 mg/dl Aspartate Amino Transf (AST/SGOT) 46 15-37 U/L Alanine Aminotransferase (ALT/SGPT) 36 12-78 U/L Alkaline Phosphatase 96 45-117 U/L Total Protein 6.0 6.4-8.2 gm/dl Albumin 2.2 3.4-5.0 gm/dl Globulin 3.8 2.5-4.0 gm/dl Albumin/Globulin Ratio 0.6 0.9-2 Assessment & Plan S/P ERCP and laparoscopic cholecystectomy Doing well Tolerating diet Ready for D/C from medical standpoint Can D/C drain prior to going home Follow up with me in 2 weeks Call [phone] for appointment
--- NOTE | 2018-01-22 14:14 | Discharge Instructions ---
Discharge Instructions Date of Service Jan 22, 2018. Admission Reason for Admission: Abdominal Pain Discharge Discharge Diagnosis / Problem: S/P ERCP and laparoscopic cholecystectomy Discharge Goals Goal(s): Decrease discomfort Activity Recommendations Activity Limitations: per Instructions/Follow-up section . Instructions / Follow-Up Instructions / Follow-Up Post-Surgical ~ Discharge Instructions Activity Recommendations: - lifting limitation: (10 pounds for 2 weeks), - exercise/sex/sports limit: (nonstrenuous for 2 weeks), - driving or machine use limit: (none for 1 week), - Shower/bathe limit: (may shower beginning tomorrow) Diet: - Resume previous diet SPECIAL CARE INSTRUCTIONS: - May shower in 24 hours. Let water run over area and pat dry. - Leave steri strips on for one week. - Call the surgeon's office with any questions or concerns - - (ex. temperature higher than 101 degrees F, excessive bleeding or pain). MEDICATIONS: - Resume previous medications unless instructed otherwise by your surgeon. - Ibuprofen 600 mg every 6 hours with food - Percocet 1 every 4 hours, as needed for pain FOLLOW UP VISIT: - If not already scheduled, please call the office to schedule a two week follow-up appointment. Office number Current Hospital Diet Patient's current hospital diet: Regular Diet Discharge Diet Recommended Diet: Low Fat Diet Procedures Procedures Performed: 1. Endoscopic Retrograde Cholangiopancreatogram with Sphincterotomy,Biliary balloon, placement of pancreatic duct stent 2. Laparoscopic Cholecystectomy Pending Studies Studies pending at discharge: yes List of pending studies: Pathology Laboratory Results Hemoglobin A1c Test 01/20/18 03:50 Range/Units Estimated Average Glucose 117 mg/dl Hemoglobin A1c 5.7 H 4.5-5.6 % Medical Emergencies . Who to Call and When: Medical Emergencies: If at any time you feel your situation is an emergency, please call 911 immediately. . Non-Emergent Contact Non-Emergency issues call your: Primary Care Provider, Surgeon Call Non-Emergent contact if: your pain is worsening, wound has increased redness, wound has increased pain . "Provider Documentation" section prepared by Phu Laurent. .
[2018-01-22] MEDS ORDERED: OXYC-57 PO (15:14)
[2018-01-22] MEDS ORDERED: [UNRECOGNIZED DRUG - CODE] PO (15:14)
[2018-01-22 15:57] VITALS: BP 146/66; PULSE 74; TEMP 36.7; O2SAT 92
--- NOTE | 2018-01-22 16:08 | Discharge Instructions ---
Discharge Instructions Date of Service Jan 22, 2018. Admission Reason for Admission: Abdominal Pain Discharge Discharge Diagnosis / Problem: Choledocholithiasis (stone in the common bile duct) Discharge Goals Goal(s): Decrease discomfort, Improve function, Diagnostic testing, Therapeutic intervention Activity Recommendations Activity Limitations: per Instructions/Follow-up section . Instructions / Follow-Up Instructions / Follow-Up Please follow-up with Dr. Farfan (who is covering for Dr. Alicia) on January 26 at 12:45PM Please follow-up with Dr. Laurent (general surgery) in 2 weeks - Call [phone] for appointment Follow activity instructions as per general surgery. Current Hospital Diet Patient's current hospital diet: Regular Diet Discharge Diet Recommended Diet: Regular Diet Procedures Procedures Performed: 1. Endoscopic Retrograde Cholangiopancreatogram with Sphincterotomy,Biliary balloon, placement of pancreatic duct stent 2. Laparoscopic Cholecystectomy Pending Studies Studies pending at discharge: no Laboratory Results Hemoglobin A1c Test 01/20/18 03:50 Range/Units Estimated Average Glucose 117 mg/dl Hemoglobin A1c 5.7 H 4.5-5.6 % Medical Emergencies . Who to Call and When: Medical Emergencies: If at any time you feel your situation is an emergency, please call 911 immediately. . Non-Emergent Contact Non-Emergency issues call your: Primary Care Provider, Surgeon . . "Provider Documentation" section prepared by Miya Antoine. . [place] Drug Monitoring Program Search Results: patient reviewed within database, no issues identified
--- NOTE | 2018-01-22 16:08 | Discharge Instructions ---
Discharge Instructions Date of Service Jan 22, 2018. Admission Reason for Admission: Abdominal Pain Discharge Discharge Diagnosis / Problem: Choledocholithasis (stone in the common bile duct) Discharge Goals Goal(s): Decrease discomfort, Improve function, Diagnostic testing, Therapeutic intervention Activity Recommendations Activity Limitations: per Instructions/Follow-up section . Instructions / Follow-Up Instructions / Follow-Up Please follow-up with Dr. Farfan (who is covering for Dr. Alicia) on January 26 at 12:45PM Please follow-up with Dr. Laurent (general surgery) in 2 weeks - Call for appointment You should have a KUB (an abdominal radiograph) in 3 weeks Follow activity instructions as per general surgery. Current Hospital Diet Patient's current hospital diet: Regular Diet Discharge Diet Recommended Diet: Regular Diet Procedures Procedures Performed: 1. Endoscopic Retrograde Cholangiopancreatogram with Sphincterotomy,Biliary balloon, placement of pancreatic duct stent 2. Laparoscopic Cholecystectomy Pending Studies Studies pending at discharge: no Laboratory Results Hemoglobin A1c Test 01/20/18 03:50 Range/Units Estimated Average Glucose 117 mg/dl Hemoglobin A1c 5.7 H 4.5-5.6 % Medical Emergencies . Who to Call and When: Medical Emergencies: If at any time you feel your situation is an emergency, please call 911 immediately. . Non-Emergent Contact Non-Emergency issues call your: Primary Care Provider, Surgeon . . "Provider Documentation" section prepared by Miya Antoine. . [place] Drug Monitoring Program Search Results: patient reviewed within database, no issues identified
--- NOTE | 2018-01-22 16:08 | Discharge Summary ---
Discharge Summary Date of Service Jan 22, 2018. Discharge Summary Admission Date: Jan 21, 2018 at 11:49 Discharge Date: Jan 22, 2018 Discharge Disposition: Home Principal Diagnosis: Choledocholithiasis s/p Laparoscopic Cholecystectomy HTN Medication Reconciliation New Medications: Ibuprofen (Ibu) 600 Mg Tab 600 MG PO Q6 for 10 Days, #40 TABS Oxycodone/Acetaminophen 5MG/325MG (Percocet 5MG/325MG) Tab 1 TAB PO Q4 PRN for Pain for 3 Days, #12 TAB PAIN Continued Medications: Amlodipine (Norvasc) 2.5 Mg Tab 2.5 MG PO DAILY, TAB Fish Oil ([place]-3) 1 Ea Cap 1 CAP PO DAILY, CAP Levothyroxine Sodium (Levothyroxine Sodium) 50 Mcg Tab 1 TAB PO DAILY, TAB 3 Refills Lisinopril (Lisinopril) 40 Mg Tab 40 MG PO DAILY Admission Information HPI (per Admitting provider): DATE OF ADMISSION: 01/20/2018 PRIMARY CARE DOCTOR: Dr. Alicia. CHIEF COMPLAINT: Abdominal pain. HISTORY OF PRESENT ILLNESS: history obtained from the patient's daughter, records. Medical history significant for hypertension, hypothyroidism, ____ history of achy right-sided abdominal pain with nausea, emesis. Chronic anemia, baseline ____ No previous episodes in the past. Admits to eating some junk food last night. No fever, no chills. The patient brought to the Emergency Room. Gallbladder ultrasound initial read showed high density material of distal CBD suggesting choledocholithiasis, common bile duct measuring [address] abdomen and pelvis contrast = initial read, gallstones, enlarged heart. The patient given cefoxitin both ____ infection. MEDICAL HISTORY: As above. The patient admits to some leg cramp. SURGERIES: Appendectomy, cataract surgery. No chest pain, shortness of breath. HOME MEDICATIONS: Include Norvasc, ____ lisinopril. ALLERGIES: No known drug allergies. FAMILY HISTORY: There is a family history of diabetes, heart disease. PERSONAL SOCIAL HISTORY: Nonsmoker, no chronic intake of alcoholic beverages. Retired from office work. REVIEW OF SYSTEMS: As per HPI, all 10 systems ____ all other ROS negative. PHYSICAL EXAMINATION: VITAL SIGNS: Blood pressure was noted to be 101/82, pulse 87, RR 16 ____ sats 97 on room air. GENERAL: Noted to be uncomfortable, obese, no distress. SKIN: Normal. SKIN: Pallor warm. HEENT: [place] palpable conjunctivae. No ptosis. Dry mucosa. ____ NECK: Supple, nontender. CHEST: Clear to auscultation. No tenderness. HEART: Regular, no murmur. ABDOMEN: Right upper quadrant tenderness, some distention. EXTREMITIES: No edema noted. No gross deformity ____ NEUROLOGIC: No gross focality. LABORATORY DATA: Hemoglobin 11.7, hematocrit 34.8, white cells ____ platelets 265. Sodium 136, potassium 2.3, chloride ____ BUN 19, creatinine 0.8, glucose 163 ____ lipase normal. Gallbladder ultrasound ____ as above. ASSESSMENT: 1. Abdominal pain possible biliary colic. No sepsis. 2. Hypertension, stable. 3. Hypokalemia secondary to emesis. 4. Chronic anemia, hemoglobin at baseline. 5. Leg cramping secondary to hypokalemia ro DVT 6. Hyperglycemia ro DM PLAN: OBS GMF analgesia, antiemetics. Hold off on antibiotics for now. Replace potassium. GI consult. RE Abdominal pain. (ER provider already in touch with Dr. Day.) Lower extremity Dopplers to rule out DVT Check hemoglobin A1c DVT prophylaxis Lovenox subQ. DNR. Patient's daughter requesting for updates from providers. Ms. Jaja Zambrano at [phone]. Hospital Course This is an 88 year old female with a PMH of HTN, hypothyroidism - presents with acute RUQ abdominal pain Choledocholithiasis 01/22 * doing well, tolerating PO intake * s/p lap simone POD #1 * No pain, no other issues to note 01/21 * s/p lap simone, ERCP * monitor labs, electrolytes, pain control * ambulate in hallways 01/20 * appreciate GI input * plan for now is for ERCP in AM * general surgery has also been consulted * clear liquid diet for now; NPO after midnight Acute Kidney Injury - resolved 01/22 * resolved after IVFs 01/21 * creatinine up to 1.6 * will add more fluids post-operatively to prevent worsening dehydration and secondary to blood loss * if still elevated, will hold CAROLE-I HTN * BP stable; continue home medis Hypothyroidism * Synthroid DVT ppx * Lovenox DNR Total time spent on discharge = 35 minutes This includes examination of the patient, discharge planning, medication reconciliation, and communication with other providers. Discharge Instructions Please follow-up with Dr. Farfan (who is covering for Dr. Alicia) on January 26 at 12:45PM Please follow-up with Dr. Laurent (general surgery) in 2 weeks - Call [phone] for appointment You should have a KUB (an abdominal radiograph) in 3 weeks Follow activity instructions as per general surgery.
--- NOTE | 2018-01-22 16:08 | Progress Note ---
Subjective Date of Service: Jan 22, 2018. Subjective Pt evaluation today including: conversation w/ patient, physical exam, lab review, review of studies, review of inpatient medication list Saw/examined the patient in room 375 Doing well no nausea/vomiting/diarrhea tolerating PO intake, regular diet for lunch Problem List Medical Problems: (1) Choledocholithiasis Status: Acute (2) Hypertension Status: Chronic (3) Hypothyroidism Status: Chronic Review of Systems Constitutional: No fever, No chills Respiratory: No cough, No sputum, No shortness of breath Cardiac: No chest pain, No edema, No palpitations Abdomen: No pain, No nausea, No vomiting, No diarrhea, No constipation, No GI bleeding Medications Current Inpatient Medications Medications (Trade) Dose Ordered Sig/Tano Route Start Time Stop Time Status Last Admin Dose Admin Acetaminophen (Tylenol Tab) 650 mg Q4H PRN PO 01/20/18 06:45 02/19/18 06:44 01/20/18 19:07 650 MG Amlodipine Besylate (Norvasc Tab) 2.5 mg DAILY PO 01/20/18 09:00 02/19/18 08:59 01/22/18 09:07 2.5 MG Levothyroxine Sodium (Synthroid Tab) 50 mcg DAILYBB PO 01/20/18 09:00 02/19/18 08:59 01/22/18 05:33 50 MCG Lisinopril (Zestril Tab) 40 mg DAILY PO 01/20/18 09:00 02/19/18 08:59 01/22/18 09:08 40 MG Prochlorperazine Edisylate 5 mg/ Syringe 5 ml @ 5 mls/min Q6H PRN IV 01/20/18 06:45 02/19/18 06:44 Tramadol HCl (Ultram Tab) not relieved by tylenol @ Q6H PRN PO 01/20/18 06:45 02/19/18 06:44 01/20/18 09:00 50 MG Miscellaneous (Iv Fluids Completed) 1 ea PRN PRN N/A 01/20/18 09:00 01/20/19 08:59 Oxycodone/ Acetaminophen (Percocet 5-325mg Tab) 1 tab Q4H PRN PO 01/21/18 12:00 02/04/18 11:59 Hydromorphone HCl (Dilaudid Inj) 0.5 mg Q1H PRN IV 01/21/18 12:00 02/04/18 11:59 Sodium Chloride 1,000 ml @ 80 mls/hr [id number] IV 01/21/18 14:30 02/20/18 14:29 01/22/18 03:28 80 MLS/HR Enoxaparin Sodium (Lovenox Inj) 30 mg Q24H SQ 01/22/18 09:00 02/21/18 08:59 01/22/18 09:08 30 MG Objective Vital Signs Date Time Temp Pulse Resp B/P (MAP) Pulse Ox O2 Delivery O2 Flow Rate FiO2 01/22/18 11:47 36.7 74 16 146/66 (92) 92 Room Air 01/22/18 10:33 90 Room Air 01/22/18 07:59 Room Air 01/22/18 07:52 36.9 82 16 146/78 (100) 90 Room Air 01/22/18 03:28 36.8 79 18 154/73 (100) 92 Room Air 01/21/18 23:00 37.3 89 20 134/67 (89) 93 Room Air 01/21/18 20:24 37.6 84 17 135/64 (87) 92 Room Air 01/21/18 19:30 91 Room Air 01/21/18 19:30 91 Room Air 01/21/18 16:00 37.0 76 18 144/69 (94) 93 Nasal Cannula 2.0 Physical Exam General Appearance: no apparent distress Respiratory/Chest: chest non-tender, lungs clear, normal breath sounds, no respiratory distress, no accessory muscle use Cardiovascular: regular rate, rhythm, no edema, no murmur Abdomen: normal bowel sounds, non tender, soft Extremities: normal range of motion, non-tender, normal inspection, no pedal edema, no calf tenderness Laboratory Results Last 24 Hours Test 01/22/18 06:49 White Blood Count 9.50 K/uL Red Blood Count 3.54 M/uL Hemoglobin 9.6 g/dL Hematocrit 30.3 % Mean Corpuscular Volume 85.6 fL Mean Corpuscular Hemoglobin 27.1 pg Mean Corpuscular Hemoglobin Concent 31.7 g/dl RDW Standard Deviation 46.8 fL RDW Coefficient of Variation 14.8 % Platelet Count 201 K/uL Mean Platelet Volume 10.9 fL Sodium Level 140 mmol/L Potassium Level 3.8 mmol/L Chloride Level 108 mmol/L Carbon Dioxide Level 25 mmol/L Anion Gap 7.0 mmol/L Blood Urea Nitrogen 15 mg/dl Creatinine 0.94 mg/dl Est Creatinine Clear Calc Drug Dose 35.8 ml/min Estimated GFR () 63.7 Estimated GFR (Non- 54.9 BUN/Creatinine Ratio 15.6 Random Glucose 76 mg/dl Calcium Level 8.1 mg/dl Total Bilirubin 0.5 mg/dl Aspartate Amino Transf (AST/SGOT) 46 U/L Alanine Aminotransferase (ALT/SGPT) 36 U/L Alkaline Phosphatase 96 U/L Total Protein 6.0 gm/dl Albumin 2.2 gm/dl Globulin 3.8 gm/dl Albumin/Globulin Ratio 0.6 Assessment and Plan This is an 88 year old female with a PMH of HTN, hypothyroidism - presents with acute RUQ abdominal pain Choledocholithiasis 01/22 * doing well, tolerating PO intake * s/p lap simone POD #1 * No pain, no other issues to note 01/21 * s/p lap simone, ERCP * monitor labs, electrolytes, pain control * ambulate in hallways 01/20 * appreciate GI input * plan for now is for ERCP in AM * general surgery has also been consulted * clear liquid diet for now; NPO after midnight Acute Kidney Injury - resolved 01/22 * resolved after IVFs 01/21 * creatinine up to 1.6 * will add more fluids post-operatively to prevent worsening dehydration and secondary to blood loss * if still elevated, will hold CAROLE-I HTN * BP stable; continue home medis Hypothyroidism * Synthroid DVT ppx * Lovenox DNR
== END 2018-01-22 16:15 | disposition home or self-care (01) | DRG 418 ==
LOC: EDBD 03:40 → C.EDA 03:40 → C.MSN 06:27 → ENRESERV 07:00 → OBSVTOIN 01-21 11:49
PROVIDERS: ADMIT Internal Medicine; ATTEND Family Medicine
PROC: 0FT44ZZ Resection of Gallbladder, Percutaneous Endoscopic Approach (ICD-10-PCS; principal; 2018-01-21 09:45)
PROC: 0F7D8DZ Dilation of Pancreatic Duct with Intraluminal Device, Via Natural or Artificial Opening Endoscopic (ICD-10-PCS; principal; 2018-01-21 09:45)
DX: K80.50 Calculus of bile duct without cholangitis or cholecystitis without obstruction (principal); N17.9 Acute kidney failure, unspecified; I10 Essential (primary) hypertension; E03.9 Hypothyroidism, unspecified; Z66 Do not resuscitate; D64.9 Anemia, unspecified; E87.6 Hypokalemia; R73.9 Hyperglycemia, unspecified; Z98.49 Cataract extraction status, unspecified eye; Z83.3 Family history of diabetes mellitus; Z82.49 Family history of ischemic heart disease and other diseases of the circulatory system